=== PATIENT | female | born 1990 | race African-American/Black ===

== ENCOUNTER 2021-10-20 11:02 | Emergency (ER) | payer BC, SELFPAY ==
[2021-10-20 11:10] VITALS: BP 120/80; PULSE 65; RESP 12; TEMP 36.4; O2SAT 100
--- NOTE | 2021-10-20 11:21 | ED.URI ---
HPI - URI/Sore Throat General Chief Complaint: Upper Respiratory Infection Stated Complaint: sore throat Time Seen by Provider: 10/20/21 11:15 Source: patient Mode of arrival: ambulatory Limitations: no limitations History of Present Illness HPI Narrative: Ms. Baez is a 31-year-old female patient presenting to the clinic today with complaints of sore throat, congestion, and ear pressure x3 days. She reports no known fever or chills. She has possible exposure to COVID. MD elicited complaint: sore throat and nasal congestion Related Data Home Medications Medication Instructions Recorded Confirmed ergocalciferol (vitamin D2) 1,250 1,250 mcg PO WEEKLY 10/20/21 10/20/21 mcg (50,000 unit) capsule Allergies Allergy/AdvReac Type Severity Reaction Status Date / Time No Known Allergies Allergy Verified 10/20/21 11:09 Review of Systems Review of Systems: Pertinent positives per HPI. Patient denies any fever, chills, rash, headache, visual changes, dizziness, cough, shortness of breath, chest pain, palpitations, nausea, vomiting, diarrhea, constipation, abdominal pain, or any urinary issues. [facility] Comments At the time of my signature, I reviewed and agree with the nursing past medical, surgical, social, and family history. There is no relevant family history pertinent to the patient complaint. Exam Narrative: General: Well-developed, obese, in no apparent distress Head: Normocephalic, atraumatic Eyes: Pupils equally round and reactive to light bilaterally, EOM intact, sclera and conjunctive clear, no discharge, lids normal Ears: TMs intact and clear, ear canals clear, no drainage, grossly hearing normal. Nose: Nares patent, clear nasal discharge, moderate inflammation to anterior and posterior nares right greater than left, mild right ethmoid sinus tenderness. Mouth: Oral pharynx without lesions or masses, good dentition, MMM. Postnasal drip, oropharynx mildly red Neck: Supple, trachea midline, no enlargement of anterior or posterior cervical nodes, no thyroid masses or goiter palpable. Cardio: Regular rate and rhythm, s1 and s2 normal, no murmur appreciated. Resp: Clear to auscultation bilaterally, no rhonchi, rales, wheezing or rubs Course Course Emergency Course: Portions of this record may have been created with voice recognition software. Level of Care: Express Care Visit Vital Signs Vital signs: Vital signs reviewed MDM - URI/Sore Throat MDM Narrative Medical decision making narrative: At the time of visit patient is resting comfortably on the exam table. COVID and strep testing was performed and were negative in the clinic. I suspect the patient has an upper respiratory infection with postnasal drip. We will give a prescription for some prednisone to help with the pressure and the congestion. Supportive measures were discussed with the patient she voiced understanding of discharge instructions and agrees to treatment plan. Differential Diagnosis Differential diagnosis: Likely upper respiratory infection, otitis media, sinusitis, viral infection, bronchitis, influenza, pharyngitis and other (COVID) Discharge Plan Discharge Clinical Impression: PND (post-nasal drip) Upper respiratory infection Qualifiers: URI type: unspecified viral URI Qualified Code(s): J06.9 - Acute upper respiratory infection, unspecified Patient Disposition: Home, Self-Care Condition: Stable Instructions: Antibiotic Form, Cold Symptoms (ED), Postnasal Drip (DC) Additional Instructions: COVID and strep screen negative in the clinic. We will send strep for culture Take prescription medications only as prescribed-prednisone Increase fluids and stay well hydrated Tylenol/motrin for pain/fever Flonase and OTC antihistamines as directed Vicks vapor rub to open sinuses Sinus rinses for congestion Cepacol spray, cough drops, throat lozenges, warm tea with honey/lemon, gargle salt water to soothe throat
== END 2021-10-20 11:49 | disposition home or self-care (01) ==
PROVIDERS: Emergency Provider Nurse Practitioner Family
DX: R09.82 Postnasal drip (principal); J06.9 Acute upper respiratory infection, unspecified; Z20.822 Contact with and (suspected) exposure to COVID-19
CPT/HCPCS: 87081; 87426; 87880; 99213; C9803; G0463

== ENCOUNTER 2022-03-31 00:25 | Day surgery (SDC) | payer BC, OTHER, SELFPAY ==
[2022-03-18 14:36] VITALS: BMI 32.9
--- NOTE | 2022-03-18 14:40 | PC.NURSE ---
Report to the Outpatient Waiting Room, entrance under the green pavilion located off [facility], at time 1130 on date 03/31/22. Planned Procedure Time: 1330. Time changes happen often and if your time is changed the preop area will call you the afternoon before. - You and your visitor will be asked to self-screen and do not enter if you have any COVID symptoms. - Only one visitor is requested with a max of two and NO children visitors are allowed at this time. - The patient visitor may be requested to leave or wait in car when not with patient due to distancing restrictions. - A mask is REQUIRED within the hospital. Patients may have clear liquids (water, carbonated beverages, clear teas, apple juice) until 3 hours prior to surgery with a maximum of 20 ounces. - No food from midnight until time of surgery Take the following medications with a SIP of water the morning of surgery: NONE Medications to discontinue per physician: VITAMIN Date to take last dose: 03/27/22 Please no make-up, nail tuvaluan, hairspray, perfume, deodorant, or body powder the day of surgery. No jewelry (including any body piercings) or valuables the day of surgery, leave them at home. Please take a shower or bath the night before, or the morning of, surgery with an antibacterial soap. Wear comfortable, loose fitting clothing. - Jewelry must be removed prior to entering the operating room. Rings and piercings that are not removed may be cut off. - The hospital will not accept responsibility for valuables. - Please leave all valuables, including medications, at home the day of surgery. If you are going home after surgery, a licensed vibratory pile driver must drive you home. - NO public transportation without another adult if you receive anesthesia. - We recommend that an adult stay with you for 24 hours following discharge. - We also recommend that you do not drive, make important decision, drink alcoholic beverages, or take any drugs that were not prescribed by your health care provider for at least 24 hours after your discharge time. Follow any additional instructions given to you from your surgeon. If you or anyone in your household have experienced Covid symptoms in the past week, please notify your surgeon or the nurse liaison at the phone number below for possible testing. Telephone instructions given to PT - AMARI BRADLEY and asked if any additional questions and then verbalized understanding. Patient advised to call surgeon office or pre surgery nurse liaison [phone] if any additional questions.
--- NOTE | 2022-03-30 11:37 | PM.IMHP ---
H&P: HPI History of Present Illness Date/Time: 03/30/22 11:37 Chief Complaint: cervical dysplasia Narrative: Sherri is a 30yo P1011, who presents for scheduled surgery. Her pap smear this year and last year were NILM/HPV +. Colpo showed NATIVIDAD 2 at 6o'clock biopsy. Review of Systems Constitutional: Constitutional: Denies chills, Denies fever(s) and Denies headache(s) Eyes: Eyes: Denies change in vision ENT: Denies dizziness and Denies headache(s) Cardiovascular: Cardiovascular: Denies chest pain and Denies dyspnea Respiratory: Respiratory: Denies cough and Denies dyspnea Gastrointestinal: Gastrointestinal: Denies abdominal pain and Denies change in stool character Genitourinary: Genitourinary: Denies abnormal menses, Denies pelvic pain, Denies vaginal discharge, Denies vaginal odor and Denies vaginal pruritus Neurologic: Denies dizziness and Denies headache(s) Psychiatric: Psychiatric: Denies anxiety and Denies depression [facility] Past Medical History Medical History Abnormal Papanicolaou smear of cervix with positive human papilloma virus (HPV) test Encounter for IUD insertion 08/2018 Surgical History Surgical History H/O colposcopy with cervical biopsy 02/20/2022 Family History Family History Other Breast cancer Heart disease Social History Social History Smoking packs per day: 1 Smoking cigarettes per day: 20.0 Years smoked: 8 Smoking pack-years: 8.00 Smoking status: Former smoker Tobacco type: cigarettes Smoking end date: 03/23/14 Alcohol intake: current Alcohol use details: 1/MONTH Substance use: never Substance use type: does not use Living arrangements: with family Additional living arrangements comments: DAUGHTER Additional occupation/education comments: [employer] [place] Gender identity (if verbalized by the patient): Female Sexual Orientation (if Verbalized by the Patient): Straight or Heterosexual Spiritual care concerns: No Meds Home Medications and Allergies Home Medications Medication Instructions Recorded Confirmed Type ergocalciferol (vitamin D2) 1,250 1,250 mcg PO WEEKLY 10/20/21 03/18/22 History mcg (50,000 unit) capsule human papillomav vac,9-ivania(PF) 0.5 0.5 ml IM ONCE #0.5 mL 03/04/22 03/18/22 Rx mL intramuscular syringe (Gardasil 9 (PF)) Allergies Allergy/AdvReac Type Severity Reaction Status Date / Time No Known Allergies Allergy Verified 03/18/22 14:35 Exam Const: General: cooperative, healthy appearing, comfortable, no acute distress and obese Orientation/consciousness: patient oriented x3 Resp: Effort & Inspection: normal respiratory effort Cardio: Rate: regular rate GI: Inspection: normal to inspection GI Palp: No abdominal tenderness and Yes Soft to palpation : Other: deferred to OR Skin: General skin exam: normal color Neuro: General: patient oriented x3 Extrem: General: normal to inspection Psych: Appearance: grossly normal Affect: normal affect Attitude: cooperative Assessment and Plan Assessment and plan (1) NATIVIDAD II (cervical intraepithelial neoplasia II): Code(s): N87.1 - Moderate cervical dysplasia Status: Acute Plan - Proceed with LEEP, top hot, ECC - Risks and benefits explained in detail
--- NOTE | 2022-03-31 08:14 | WPDHPUPDATE1 ---
History and Physical Update Update Date/Time: 03/31/22 08:14 History and Physical has been reviewed, including an updated exam of the patient. There are NO changes in the patient's condition. Risks, benefits, and alternatives have been discussed and questions answered. Patient agrees to proceed with procedure.
--- NOTE | 2022-03-31 09:08 | P.PNAN_ITS ---
Anes - Initial Pre Proc Eval Procedure: Operation Date: 03/31/22 13:30 Proposed Procedures p Loop Electrical Excision Procedure - Shantell Craft MD Date/Time: 03/31/22 09:08 Surgeon: Shantell Craft MD Pre Op Diagnosis: cervical dysplasia Patient Data Age: 31 Gender: F Height: 1.63 m Weight: 87.1 kg Allergies Allergy/AdvReac Type Severity Reaction Status Date / Time No Known Allergies Allergy Verified 03/18/22 14:35 Home Medications Medication Instructions Recorded Confirmed Type ergocalciferol (vitamin D2) 1,250 1,250 mcg PO WEEKLY 10/20/21 03/18/22 History mcg (50,000 unit) capsule human papillomav vac,9-ivania(PF) 0.5 0.5 ml IM ONCE #0.5 mL 03/04/22 03/18/22 Rx mL intramuscular syringe (Gardasil 9 (PF)) Patient hx anesthesia problems: none Family hx anesthesia problems: none Results Review: All pre-operative results and documents have been reviewed as part of the pre- operative evaluation. [facility]LY [facility] Past Medical History Medical History Abnormal Papanicolaou smear of cervix with positive human papilloma virus (HPV) test Encounter for IUD insertion 08/2018 Surgical History Surgical History H/O colposcopy with cervical biopsy 02/20/2022 Family History Family History Other Breast cancer Heart disease Social History Social History Smoking packs per day: 1 Smoking cigarettes per day: 20.0 Years smoked: 8 Smoking pack-years: 8.00 Smoking status: Former smoker Tobacco type: cigarettes Smoking end date: 03/23/14 Alcohol intake: current Alcohol use details: 1/MONTH Substance use: never Substance use type: does not use Living arrangements: with family Additional living arrangements comments: DAUGHTER Additional occupation/education comments: [employer] [place] Gender identity (if verbalized by the patient): Female Sexual Orientation (if Verbalized by the Patient): Straight or Heterosexual Spiritual care concerns: No Anes - Eval Final PreProcedure Day of Procedure 03/31/22 09:08 Patient weight: obese Heart: regular rate and rhythm Lungs: clear to auscultation Airway: Mallampati scale class II Neurological: alert and oriented Last oral intake: >/= 8 hours ASA classification: II Emergent: no Anesthetic plan: proceed Anesthesia type and monitoring: general GIVS and standard monitoring Results Review: All pre-operative results and documents have been reviewed as part of the pre- operative evaluation. Informed Consent: The patient's anesthetic plan and its attendant risks and benefits were discussed with the patient/family/POA. Questions were solicited and answers provided to the satisfaction of the patient/family/POA.
[2022-03-31 09:42] VITALS: BP 120/65; PULSE 71; RESP 14; TEMP 36.3; O2SAT 100
[2022-03-31] MEDS: LACTATED RINGERS 1,000 ML 30 ML IV CONT (09:45)
[2022-03-31] MEDS: ACETAMINOPHEN 500 MG TABLET 1000 MG PO (09:45)
[2022-03-31] MEDS: BUPIVACAINE/EPINEPHRINE 0.5% 10 ML VIAL 30 ML INFILTRATE (10:03)
--- NOTE | 2022-03-31 10:28 | P.OP_ITS ---
Procedure Note - Detailed Date of Procedure 03/31/22 Pre-op Diagnosis cervical dysplasia Post-op Diagnosis Same Procedure Performed LEEP, top hat, ECC Surgeon Shantell Craft MD Anesthesia MAC Findings No uptake at 6 and 12 o'clock. IUD strings visualized, but cut during the LEEP procedure (unable to see strings at end of case). Good hemostasis at end of case. Description of Procedure Sherri was taken to the operating room where she was placed under MAC sedation without complications. She was then prepped and draped in the normal fashion in the dorsal lithotomy position with her legs in low Yohannes stirrups. A time-out was performed and no preoperative antibiotics were indicated. A coated speculum attached to suction was then placed within the vagina, where the cervix was easily identified. The cervix was then injected with 0.25% Marcaine with ep inephrine (10cc were used). Lugol?s solution was then applied to the cervix. No uptake was noted at 12 and 6 o'clock. The LEEP was then obtained in a single swipe from the patient?s left to right. The LEEP was removed and a silk stitch was placed at 12:00 p.m. to orient the tissue for pathology. A top-hat was then obtained in the same manner. A silk stitch was then placed at 12:00 p.m. An E CC was then collected. The LEEP bed was then cauterized using the roller ball. Monsel?s solution was then placed in the LEEP bed. Good hemostasis was noted. Sponge, lap, instrument, and needle counts were correct at the end of the procedure. The patient was awoken from anesthesia and taken to recovery in a stable condition with plans of same-day discharge home. Estimated Blood Loss 5 Pathology Yes (Leep and top hat (both with stitch at 12o'clock), ECC) Condition Stable Disposition Same day [facility] Billing Surgery - Charge Forward: Surgery Billing
[2022-03-31 10:32] VITALS: BP 110/66; PULSE 89; RESP 16; O2SAT 99
[2022-03-31 11:00] VITALS: BP 107/64; PULSE 86; RESP 16; O2SAT 100
[2022-03-31 11:30] VITALS: BP 111/69; PULSE 74; RESP 16; O2SAT 100
[2022-03-31 12:00] VITALS: BP 96/60; PULSE 68; RESP 16
== END 2022-03-31 12:27 | disposition home or self-care (01) ==
PROVIDERS: PCP Family Medicine; Visit Provider Obstetrics & Gynecology
PROC: 0UBC7ZZ Excision of Cervix, Via Natural or Artificial Opening (ICD-10-PCS; CPT 57522; principal; 2022-03-31 13:30)
DX: N87.1 Moderate cervical dysplasia (principal); Z87.891 Personal history of nicotine dependence; E66.9 Obesity, unspecified; Z68.33 Body mass index [BMI] 33.0-33.9, adult
CPT/HCPCS: 57522; 88305; 88307; 88342; A9270; J1100; J2250; J2405; J2704; J3010; J7120

== ENCOUNTER 2022-12-03 14:03 | Outpatient (CLI) | payer BC, OTHER, SELFPAY ==
[2022-12-03 15:00] LABS: Basophils Absolute Auto 0.1 K/mm3 (0.0-0.1); Basophils Percent Auto 0.8 % (0.2-1.2); Eosinophils Absolute Auto 0.2 K/mm3 (0-0.3); Eosinophils Percent Auto 2.3 % (0-4.4); Hematocrit 42.8 % (37.0-47.0); Immature Granulocyte Absolute 0.03 K/mm3 (0.00-0.031); Immature Granulocyte Percent A 0.4 % (0-0.5); Immature Platelet Fraction Pct 11.4 % (0.9-11.2); Lymphocytes Absolute Auto 3.03 K/mm3 (0.9-3.2); Mean Corpuscular HGB Conc 32.7 g/dl (32-36); Mean Corpuscular Hemoglobin 30.7 pg (26-34); Mean Corpuscular Volume 93.9 fl (80-100); Mean Platelet Volume 12.1 fl (7.4-10.4); Monocytes Absolute Auto 0.5 K/mm3 (0.1-0.6); Monocytes Percent Auto 6.5 % (2.6-8.5); Neutrophils Absolute Auto 3.6 K/mm3 (1.3-6.7); Platelet Count Result 146 k/mm3 (150-375); Red Blood Count 4.56 M/mm3 (4.2-5.4); Red Cell Distribution Width 12.5 % (11.5-14.5); White Blood Count 7.4 K/mm3 (4.5-10.0)
[2022-12-03 15:54] LABS: Iron 101 ug/dL (37-170)
[2022-12-03 16:03] LABS: Percent Iron Saturation 31 % (20-50)
[2022-12-03 16:25] LABS: Thyroid Stimulating Hormone Reflex 0.676 uIU/mL (0.465-4.68)
[2022-12-06 17:13] LABS: Testosterone Total 34 ng/dL (2-45)
[2022-12-09 14:43] LABS: Progesterone 20.7 ng/mL (***); Prolactin 7.8 ng/mL (***)
[2022-12-10 21:51] LABS: Estradiol, Ultrasensitive 199 pg/mL
== END 2022-12-03 14:04 | disposition home or self-care (01) ==
LOC: ANHLAB 14:05
PROVIDERS: PCP Family Medicine; Visit Provider Obstetrics & Gynecology
DX: N93.9 Abnormal uterine and vaginal bleeding, unspecified (principal)
CPT/HCPCS: 36415; 82670; 82728; 83001; 83540; 83550; 84144; 84146; 84403; 84443; 85025; 85055

== ENCOUNTER 2023-05-07 08:17 | Outpatient (CLI) | payer BC, OTHER, SELFPAY | END 2023-05-07 08:18 | disposition home or self-care (01) | PROVIDERS: PCP Family Medicine; Visit Provider Obstetrics & Gynecology | DX: Z01.818 Encounter for other preprocedural examination (principal); N93.9 Abnormal uterine and vaginal bleeding, unspecified | CPT/HCPCS: 36415; 86850; 86900; 86901 ==

== ENCOUNTER 2023-05-11 00:21 | Day surgery (SDC) | payer BC, SELFPAY ==
[2023-04-30 08:47] VITALS: BMI 34.2
--- NOTE | 2023-04-30 09:00 | SUR.PREOP ---
Report to the Outpatient Waiting Room, entrance under the green pavilion located off [facility], at time 0600 on date 05/11/23. Planned Procedure Time: 0730. Time changes happen often and if your time is changed the preop area will call you the afternoon before. - You and your visitor will be asked to self-screen and do not enter if you have any COVID symptoms. - A mask is optional within the hospital at this time. Patients may have clear liquids (water, carbonated beverages, clear teas, apple juice) until 3 hours prior to surgery with a maximum of 20 ounces. - No food from midnight until time of surgery 20 ounces before 0430am - Infants may have breast milk until 4 hours before surgery, infant formula 6 hours prior to surgery. - Children will be allowed to drink immediately following surgery. If applicable, please bring a bottle or sippy cup to assist with drinking. Juice, water, soda, and popsicles are readily available. For infants on formula, please bring formula the day of surgery. Pacifiers are allowed. Take the following medications with a SIP of water the morning of surgery: n/a DO NOT STOP ANY OF YOUR OTHER PRESCRIPTION MEDICATIONS PRIOR TO SURGERY ?EXCEPT THE FOLLOWING Medications to discontinue per physician n/a Date to take last dose Please no make-up, nail american, hairspray, perfume, deodorant, or body powder the day of surgery. No jewelry (including any body piercings) or valuables the day of surgery, leave them at home. Please take a shower or bath the night before, or the morning of, surgery with an antibacterial soap. Wear comfortable, loose fitting clothing. Children are encouraged to wear pajamas. - Jewelry must be removed prior to entering the operating room. Rings and piercings that are not removed may be cut off. - The hospital will not accept responsibility for valuables. - Please leave all valuables, including medications, at home the day of surgery. If you are going home after surgery, a licensed otr flatbed company truck driver must drive you home. - NO public transportation without another adult if you receive anesthesia. - We recommend that an adult stay with you for 24 hours following discharge. - We also recommend that you do not drive, make important decision, drink alcoholic beverages, or take any drugs that were not prescribed by your health care provider for at least 24 hours after your discharge time. For Pediatric surgeries, we recommend two adults accompany the child home. Follow any additional instructions given to you from your surgeon. If you or anyone in your household have experienced Covid symptoms in the past week, please notify your surgeon or the nurse liaison at the phone number below for possible testing. Telephone instructions given to __patient__and asked if any additional questions and then verbalized understanding. Patient advised to call surgeon office or pre surgery nurse liaison [phone] if any additional questions.
--- NOTE | 2023-05-08 08:57 | PM.IMHP ---
H&P: HPI History of Present Illness Date/Time: 05/08/23 08:57 Chief Complaint: AUB Narrative: Sherri is a 32yo P1011, who presents for surgical management of AUB. She has a normal pap 11/2022. She had a LEEP 03/2022 due to NATIVIDAD 2 on colpo, leep was negative for dysplasia. 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 She has a Mirena IUD in place since 08/2018. She is having cycles every other week now; sometimes just spotting, other times needing to use large tampon. She is frustrated why she continues to have heavy/painful cycles even with the IUD; wondering what her options are. Blood work showed normal blood counts/iron, normal thyroid, no PCOS. 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 She is sexually active, BF has a vasectomy. Review of Systems Constitutional: Constitutional: Denies chills, Denies fever(s) and Denies headache(s) Eyes: Eyes: Denies change in vision ENT: Denies dizziness and Denies headache(s) Cardiovascular: Cardiovascular: Denies chest pain and Denies dyspnea Respiratory: Respiratory: Denies cough and Denies dyspnea Gastrointestinal: Gastrointestinal: Denies abdominal pain and Denies change in stool character Genitourinary: Genitourinary: Reports abnormal menses, Reports menorrhagia, Reports pelvic pain, Denies vaginal discharge, Denies vaginal odor and Denies vaginal pruritus Neurologic: Denies dizziness and Denies headache(s) Psychiatric: Psychiatric: Denies anxiety and Denies depression [facility] Past Medical History Medical History Abnormal Papanicolaou smear of cervix with positive human papilloma virus (HPV) test Encounter for IUD insertion 08/2018- PARGARD INSERTION Vaginal discharge Surgical History Surgical History H/O colposcopy with cervical biopsy 02/20/2022 shows NATIVIDAD 2; needs LEEP H/O LEEP 03/31/2022 - benign Family History Family History Mother Breast cancer Other Diabetes mellitus Heart disease Social History Social History Smoking packs per day: 1 Smoking cigarettes per day: 20.0 Years smoked: 8 Smoking pack-years: 8.00 Smoking status: Never smoker Tobacco type: cigarettes Smoking end date: 03/23/14 Alcohol intake: current Alcohol use details: 1/MONTH Substance use: never Substance use type: does not use Lack of Transportation: No Lack of Food: Never True Current Housing: I Have Housing Concerned About Future Housing: No Difficulty Paying Gas/Electric Bills: No Difficulty Paying for Meds: No Currently Unemployed: No Education: Associate Degree Difficulty w/ Childcare or Family Care: No Living arrangements: with family Additional living arrangements comments: DAUGHTER Occupation/Education: occupation Additional occupation/education comments: [employer] [place] Gender identity (if verbalized by the patient): Female Sexual Orientation (if Verbalized by the Patient): Straight or Heterosexual Spiritual care concerns: No Meds Home Medications and Allergies Home Medications Medication Instructions Recorded Confirmed Type No Home Medications 04/30/23 04/30/23 History Allergies Allergy/AdvReac Type Severity Reaction Status Date / Time No Known Allergies Allergy Verified 03/26/23 08:32 Exam Const: General: cooperative, healthy appearing, comfortable and no acute distress Orientation/consciousness: patient oriented x3 Resp: Effort & Inspection: normal respiratory effort Cardio: Rate: regular rate GI: Inspection: normal to inspection GI Palp: No abdominal tenderness and Yes Soft to palpation : Other: deferred to OR Skin: General skin exam: normal color Neuro: General: patient oriented x3 Extrem: General: normal to inspection Psych: Appearance: grossly
[2023-05-11] VITALS (11 sets, daily range): BP systolic 102–122; BP diastolic 56–77; PULSE 62–86; RESP 14–22; TEMP 36.2–37.1; O2SAT 95–100
[2023-05-11] MEDS: LACTATED RINGERS 1,000 ML 30 ML IV CONT ×2 (06:55→09:15)
[2023-05-11] MEDS: KETOROLAC 15 MG/ML VIAL (*BKC) IV PUSH (06:55)
[2023-05-11] MEDS: ACETAMINOPHEN 500 MG TABLET 1000 MG PO ×2 (06:55→17:13)
--- NOTE | 2023-05-11 07:08 | WPDHPUPDATE1 ---
History and Physical Update Update Date/Time: 05/11/23 07:08 History and Physical has been reviewed, including an updated exam of the patient. There are NO changes in the patient's condition. Risks, benefits, and alternatives have been discussed and questions answered. Patient agrees to proceed with robotic assisted total laparoscopic hysterectomy with bilateral salpingectomy and cystoscopy.
--- NOTE | 2023-05-11 07:13 | P.PNAN_ITS ---
Anes - Initial Pre Proc Eval Procedure: Operation Date: 05/11/23 07:30 Proposed Procedures p Robotic Assisted Total Laparoscopic Hysterectomy with Bilateral Salpingectomy - Shantell Craft MD Date/Time: 05/11/23 07:13 Surgeon: Shantell Craft MD Pre Op Diagnosis: abnormal uterine bleeding Patient Data Age: 32 Gender: F Height: 1.6 m Weight: 87.54 kg Allergies Allergy/AdvReac Type Severity Reaction Status Date / Time No Known Allergies Allergy Verified 03/26/23 08:32 Home Medications Medication Instructions Recorded Confirmed Type No Home Medications 04/30/23 04/30/23 History Patient hx anesthesia problems: none Family hx anesthesia problems: none Results Review: All pre-operative results and documents have been reviewed as part of the pre- operative evaluation. [facility] Past Medical History Medical History Abnormal Papanicolaou smear of cervix with positive human papilloma virus (HPV) test Encounter for IUD insertion 08/2018- PARGARD INSERTION Vaginal discharge Surgical History Surgical History H/O colposcopy with cervical biopsy 02/20/2022 shows NATIVIDAD 2; needs LEEP H/O LEEP 03/31/2022 - benign Family History Family History Mother Breast cancer Other Diabetes mellitus Heart disease Social History Social History Smoking packs per day: 1 Smoking cigarettes per day: 20.0 Years smoked: 8 Smoking pack-years: 8.00 Smoking status: Never smoker Tobacco type: cigarettes Smoking end date: 03/23/14 Alcohol intake: current Alcohol use details: 1/MONTH Substance use: never Substance use type: does not use Lack of Transportation: No Lack of Food: Never True Current Housing: I Have Housing Concerned About Future Housing: No Difficulty Paying Gas/Electric Bills: No Difficulty Paying for Meds: No Currently Unemployed: No Education: Associate Degree Difficulty w/ Childcare or Family Care: No Living arrangements: with family Additional living arrangements comments: DAUGHTER Occupation/Education: occupation Additional occupation/education comments: [employer] [place] Gender identity (if verbalized by the patient): Female Sexual Orientation (if Verbalized by the Patient): Straight or Heterosexual Spiritual care concerns: No Anes - Eval Final PreProcedure Day of Procedure 05/11/23 07:13 Patient weight: obese Heart: regular rate and rhythm Lungs: clear to auscultation Airway: Mallampati scale class II Neurological: alert and oriented Last oral intake: >/= 8 hours ASA classification: II Emergent: no Anesthetic plan: proceed Anesthesia type and monitoring: general ETT and standard monitoring Results Review: All pre-operative results and documents have been reviewed as part of the pre- operative evaluation. Informed Consent: The patient's anesthetic plan and its attendant risks and benefits were discussed with the patient/family/POA. Questions were solicited and answers provided to the satisfaction of the patient/family/POA.
[2023-05-11] MEDS: ceFAZolin 2 GM/D5W 50 ML 2 GM/50 ML BAG IVPB (07:29)
[2023-05-11] MEDS: metroNIDAZOLE 500 MG/ISO 100ML 500 MG/100 ML BAG 100 MG IVPB (07:49)
[2023-05-11] MEDS: LIDO 1%/EPINEPHRINE 1:100,000 50 ML VIAL 30 ML INFILTRATE (08:04)
--- NOTE | 2023-05-11 09:07 | W.PM.PROC2 ---
Procedure Note - Detailed Date of Procedure 05/11/23 Pre-op Diagnosis abnormal uterine bleeding fibroid uteres Post-op Diagnosis Same Procedure Performed Robotic assisted laparoscopic hysterectomy with bilateral salpingectomy and cystoscopy Surgeon Shantell Craft MD Technology Teacher Kelli Anesthesia General and Local (1% lido w/ epi: 16cc) Findings Cervix 3cm; stenotic os, no IUD strings visualized. Uterus sounded to 11cm. Fibroid uterus; 3cm fibroid noted anteriorly. Normal bilateral fallopian tubes. Left ovary with small 1cm hemorrhagic cyst. Normal right ovary. Bladder without defects or masses; bilateral ureteral efflux noted. Good hemostasis at end of case; hemoderm powder used on raw edges at the end of the case. Uterus, cervix, bilateral tubes: 219.8g. Description of Procedure Sherri was taken to the operating room where she was placed under general anesthesia without issues. She received 2 g Ancef and 500mg Metronidazole. She was then prepped and draped in the usual sterile fashion in the dorsal lithotomy position with her legs in low Yohannes stirrups and her arms tucked at her side. A time-out was performed. My attention was turned down below where a light catheter was placed. A bivalve speculum was placed within the vagina. The cervix was easily identified and the anterior lip of the cervix was grasped with single-tooth tenaculum. The uterus was then sounded to 11cm. The cervix was serially dilated to allow for the MARIAN uterine manipulator; which was placed w/o issue (10cm tip with 3cm cervical ring). My gloves were changed and attention was then turned to the abdomen. A supraumbilical incision was made, and a 5 mm trocar was placed under direct visualization. Once intra-abdominal placement was confirmed, the abdomen was insufflated with carbon dioxide gas. An abdominal survey was performed and the above findings were noted. Two additional ports were placed on the right side and one port on the left side under direct visualization without issues. The umbilical port was switched out for a robotic port under direct visualization. The patient was then placed in deep Trendelenburg, with the legs slightly lowered. The robot was then docked. The instruments were placed intra-abdominally under direct visualization. I then un-scrubbed and went to the robotic console. I then started my hysterectomy on the right side. The ureter was easily identified transperitoneally and well out of the surgical field. The fallopian tube was elevated and the mesosalpinx was coagulated and transected. The round ligament was clamped, coagulated, and transected. The uterine ovarian artery was then serially clamped, coagulated, and transected with good hemostasis. The broad ligament was then dissected anteriorly and posteriorly skeletonizing the uterine artery. The bladder flap was then developed on the right side and carried around the left, anteriorly. The uterine artery was then serially clamped and coagulated. Once the vessel was adequately coagulated, it was then transected with good hemostasis. The same procedure was then performed on the left side without complications. The uterus was noted to be devascularized. The bladder flap was verified out of the surgical field and the colpotomy was started anteriorly and continued in a clockwise fashion until the uterus was released. The uterus was removed from the abdomen via the vagina without complications. The vaginal cuff had small bleeders that were made hemostatic without complications. The vaginal cuff was then reapproximated using a 0 V lock suture. The pelvis was then irrigated and suctioned free of all clots and debris. Hemoderm powder was placed on all the raw edges. Good hemostasis was noted. All instruments were removed from the abdomen and the robot was undocked. I then scrubbed back in and verified that the cuff was intact without any defects. The Light catheter was then removed. The cystoscope was placed within th
[2023-05-11] MEDS: DEXTROSE 5%/LACTATED RINGERS 1,000 ML 125 ML IV CONT (11:02)
[2023-05-11] MEDS: HYDROmorphone HCL INJ (*CRX) 1 MG/ML SYR 0.5 MG IV PUSH (11:03)
[2023-05-11] MEDS: KETOROLAC 30 MG/ML VIAL (*BKC) IV PUSH ×2 (13:12→19:13)
[2023-05-11] MEDS: oxyCODONE HCL (*CRX) 5 MG TAB IR PO (15:52)
[2023-05-11] MEDS: SIMETHICONE 80 MG TAB.CHEW PO (17:12)
[2023-05-11] MEDS: DOCUSATE SODIUM 100 MG CAPSULE PO (17:13)
[2023-05-11] MEDS: ONDANSETRON INJ 4 MG/2 ML VIAL IV PUSH (19:13)
[2023-05-12] MEDS: ACETAMINOPHEN 500 MG TABLET 1000 MG PO ×2 (00:15→09:58)
[2023-05-12] MEDS: IBUPROFEN 600 MG TABLET PO ×2 (00:15→09:59)
[2023-05-12 04:30] VITALS: BP 124/79; PULSE 91; RESP 18; TEMP 36.7; O2SAT 99
[2023-05-12] MEDS: oxyCODONE HCL (*CRX) 5 MG TAB IR PO (04:30)
--- NOTE | 2023-05-12 07:11 | PM.GYNPNOP ---
SEPARATOR TENDER - A/P Assessment and plan (1) S/P laparoscopic hysterectomy: Code(s): Z90.710 - Acquired absence of both cervix and uterus Status: Acute Postoperative Procedures: Procedures Operation Date: 05/11/23 07:30 Actual Procedure Side Surgeon p Robotic Assisted Total Laparoscopic Hysterectomy with Bilateral Salpingectomy Bilateral Shantell Craft MD Postoperative day: 1 Postoperative status: doing well Postoperative plan: routine post-op care, advance diet (and verify she can tolerate PO pain meds), discharge and other (pending labs) Time Spent With Patient Time: Total time spent is greater than 50% in coordination of care (as documented) at patient's floor/unit and/or counseling patient: Time with patient: less than 15 minutes SEPARATOR TENDER- PN:Subj Post-Op Subjective Date/time seen: 05/12/23 07:11 Interval history: POD#1 Sherri reports doing well today. No issues overnight. Her pain is controlled with PO meds. She has only tolerated a couple bites of regular diet, vomited after the first two doses of pain meds (on empty stomach, kept the third dose down after a few bites of sandwich). She denies any vaginal bleeding. She has voided. She has not passed flatus yet either. She has ambulated and denies any symptoms of anemia. Labs also pending (lab had to collect them). Review of Systems Review of Systems: All systems reviewed & are unremarkable except as noted in HPI and below (HPI) Constitutional: Constitutional: Denies chills, Denies fever(s) and Denies headache(s) Eyes: Eyes: Denies change in vision ENT: Denies dizziness and Denies headache(s) Cardiovascular: Cardiovascular: Denies chest pain and Denies rapid heart rate Respiratory: Respiratory: Denies cough Genitourinary: Genitourinary: Denies abnormal vaginal bleeding Neurologic: Denies dizziness and Denies headache(s) Exam Const: General: cooperative, comfortable, no acute distress and obese Orientation/consciousness: patient oriented x3 Resp: Effort & Inspection: normal respiratory effort Auscultation: clear to auscultation bilaterally Cardio: Rate: regular rate GI: Inspection: normal to inspection and incision (4 LSC incisions ) GI Palp: Yes abdominal tenderness (appropriate) and Yes Soft to palpation Auscultation: normal bowel sounds : Other: normal bleeding on pad Skin: General skin exam: normal color Neuro: General: patient oriented x3 Psych: Appearance: grossly normal Affect: normal affect Attitude: cooperative SEPARATOR TENDER - PN: Obj Data Vital Signs Vital Signs: Vital Signs - 24 hr 05/11/23 09:15 05/11/23 09:30 05/11/23 09:45 Temperature 97.1 F L Pulse Rate 78 75 70 Respiratory Rate 20 18 Blood Pressure 102/56 L 117/68 114/75 Pulse Oximetry 97 100 100 Oxygen Delivery Simple Face Mask Simple Face Mask Simple Face Mask Oxygen Flow Rate 8 10 10 05/11/23 09:50 05/11/23 10:00 05/11/23 10:05 Temperature Pulse Rate 86 85 Respiratory Rate 22 H 19 Blood Pressure 104/67 121/68 Pulse Oximetry 98 98 96 Oxygen Delivery Room Air Room Air Room Air Oxygen Flow Rate 05/11/23 10:15 05/11/23 10:30 05/11/23 10:40 Temperature 97.3 F L Pulse Rate 82 82 80 Respiratory Rate 17 19 18 Blood Pressure 118/71 121/77 122/66 Pulse Oximetry 95 97 100 Oxygen Delivery Room Air Room Air Oxygen Flow Rate 05/11/23 10:45 05/11/23 19:10 05/11/23 19:10 Temperature 98.8 F Pulse Rate 62 Respiratory Rate 18 Blood Pressure 122/76 Pulse Oximetry 100 Oxygen Delivery Room Air Room Air Oxygen Flow Rate 05/12/23 04:30 05/12/23 04:30 Temperature 98.1 F Pulse Rate 91 Respiratory Rate 18 Blood Pressure 124/79 Pulse Oximetry 99 Oxygen Delivery Room Air Oxygen Flow Rate Intake/Output Intake/Output: Intake & Output 05/09/23 05/10/23 05/11/23 05/12/23 23:59 23:59 23:59 23:59 Intake Total 2550 Output Total 550 Balance 1999 Meds/Results Medications: Active Medicat
[2023-05-12 07:35] LABS: Basophils Percent Auto 0.3 % (0.2-1.2); Hematocrit 37.7 % (37.0-47.0); Hemoglobin 12.4 g/dL (12.0-15.0); Immature Granulocyte Absolute 0.06 K/mm3 (0.00-0.031); Immature Granulocyte Percent A 0.4 % (0-0.5); Lymphocytes Absolute Auto 2.54 K/mm3 (0.9-3.2); Lymphocytes Percent Auto 16.3 % (18.3-44.2); Mean Corpuscular HGB Conc 32.9 g/dl (32-36); Mean Corpuscular Hemoglobin 30.8 pg (26-34); Mean Corpuscular Volume 93.5 fl (80-100); Mean Platelet Volume 10.9 fl (7.4-10.4); Monocytes Percent Auto 6.4 % (2.6-8.5); Neutrophils Absolute Auto 11.9 K/mm3 (1.3-6.7); Neutrophils Percent Auto 76.6 % (45.5-73.1); Platelet Count Result 195 k/mm3 (150-375); Red Blood Count 4.03 M/mm3 (4.2-5.4); Red Cell Distribution Width 12.8 % (11.5-14.5); White Blood Count 15.6 K/mm3 (4.5-10.0)
[2023-05-12 07:44] LABS: Anion Gap 2 mmol/L (8-16); Blood Urea Nitrogen 8 mg/dL (7-17); Calcium 9.2 mg/dL (8.4-10.2); Carbon Dioxide 27 mmol/L (22-30); Chloride 106 mmol/L (98-107); Estimated CRCL calculation 118 ml/min; Estimated Glomerular Filt Rate > 60; Glucose 95 mg/dL (65-110); Potassium 3.7 mmol/L (3.4-5.0); Sodium 135 mmol/L (137-145)
[2023-05-12 08:00] VITALS: BP 120/56; PULSE 56; RESP 16; TEMP 36.8; O2SAT 100
[2023-05-12] MEDS: SIMETHICONE 80 MG TAB.CHEW PO (09:58)
[2023-05-12] MEDS: DOCUSATE SODIUM 100 MG CAPSULE PO (09:59)
--- NOTE | 2023-05-12 10:26 | WPDANESPN ---
Anes - Prog Note Post-Op Date/Time: 05/12/23 10:26 Cardiovascular status: normal Respiratory status: normal Airway patency: baseline Mental status: baseline Post-Op hydration status: normal Vital Signs: Last Vital Signs Temp 36.8 C 05/12/23 08:00 Pulse 56 L 05/12/23 08:00 Resp 16 05/12/23 08:00 BP 120/56 L 05/12/23 08:00 Pulse Ox 100 05/12/23 08:00 O2 Del Method Room Air 05/12/23 04:30 O2 Flow Rate 10 05/11/23 09:45 Pain Score (VAS): 05/30 I/O: Intake & Output 05/11/23 05/12/23 05/12/23 23:59 07:59 15:59 Intake Total 300 Output Total 400 Balance -100 Laboratory Tests 05/12/23 07:28 05/12/23 07:28 05/12/23 07:28 WBC 15.6 H RBC 4.03 L Hgb 12.4 Hct 37.7 MCV 93.5 MCH 30.8 MCHC 32.9 RDW 12.8 Plt Count 195 MPV 10.9 H Immature Gran % (Auto) 0.4 Neut % (Auto) 76.6 H Lymph % (Auto) 16.3 L [place] % (Auto) 6.4 Eos % (Auto) 0.0 Baso % (Auto) 0.3 Lymph # (Auto) 2.54 [place] # (Auto) 1.0 H Eos # (Auto) 0.0 Baso # (Auto) 0.0 Abs Immat Gran (auto) 0.06 H Absolute Neuts (auto) 11.9 H Absolute Nucleated RBC 0.0 Nucleated RBC % 0.0 Sodium 135 L Potassium 3.7 Chloride 106 Carbon Dioxide 27 Anion Gap 2 L BUN 8 Creatinine 0.60 L Estim Creat Clear Calc 118 Estimated GFR > 60 Glucose 95 Calcium 9.2 Post-procedural complaints: none Patient Feedback: Patient satisfied with anesthetic care.
== END 2023-05-12 10:42 | disposition home or self-care (01) ==
LOC: ANHSURGERY 06:08 → ANHOB2 10:37
PROVIDERS: PCP Family Medicine; Visit Provider Obstetrics & Gynecology
PROC: (CPT 58571; principal; 2023-05-11 07:30)
DX: D25.0 Submucous leiomyoma of uterus (principal); D25.1 Intramural leiomyoma of uterus; N93.9 Abnormal uterine and vaginal bleeding, unspecified; N87.9 Dysplasia of cervix uteri, unspecified; N88.8 Other specified noninflammatory disorders of cervix uteri; N83.8 Other noninflammatory disorders of ovary, fallopian tube and broad ligament; Z87.891 Personal history of nicotine dependence; E66.9 Obesity, unspecified; Z68.34 Body mass index [BMI] 34.0-34.9, adult
CPT/HCPCS: 58571; S2900; 36415; 80048; 85025; 88307; 99199; A9270; J0690; J1100; J1170; J1836; J1885; J2250; J2405; J2704; J3010; J7030; J7120; J7121

== ENCOUNTER 2023-05-19 14:11 | Emergency (ER) | payer BC, SELFPAY ==
--- NOTE | 2023-05-19 14:19 | ED.FEVER ---
HPI - Fever General Chief Complaint: Fever Stated Complaint: Fever Time Seen by Provider: 05/19/23 14:18 Source: patient Mode of arrival: ambulatory Limitations: no limitations History of Present Illness HPI Narrative: Jasbir is a 32-year-old female patient presenting to clinic today with complaints of a headache and possible fever. She reports she had a total hysterectomy on Thursday. She reports to her OBGYN that she had fever this morning of 99. They told her to come in and be evaluated. Also reporting a headache. OBGYN wants her tested for COVID and flu. Related Data Allergies Allergy/AdvReac Type Severity Reaction Status Date / Time No Known Allergies Allergy Verified 05/19/23 14:18 Review of Systems Review of Systems: Pertinent positives per HPI. Patient denies any fever, chills, rash, headache, visual changes, dizziness, cough, shortness of breath, chest pain, palpitations, nausea, vomiting, diarrhea, constipation, abdominal pain, or any urinary issues. [facility] Past Medical History Medical History Abnormal Papanicolaou smear of cervix with positive human papilloma virus (HPV) test Encounter for IUD insertion 08/2018- PARGARD INSERTION Vaginal discharge Surgical History Surgical History H/O colposcopy with cervical biopsy 02/20/2022 shows NATIVIDAD 2; needs LEEP H/O LEEP 03/31/2022 - benign S/P laparoscopic hysterectomy Robotic assisted laparoscopic hysterectomy with bilateral salpingectomy and cystoscopy Family History Family History Mother Breast cancer Other Diabetes mellitus Heart disease Social History Social History Smoking packs per day: 1 Smoking cigarettes per day: 20.0 Years smoked: 8 Smoking pack-years: 8.00 Smoking status: Never smoker Tobacco type: cigarettes Smoking end date: 03/23/14 Alcohol intake: current Alcohol use details: 1/MONTH Substance use: never Substance use type: does not use Lack of Transportation: No Lack of Food: Never True Current Housing: I Have Housing Concerned About Future Housing: No Difficulty Paying Gas/Electric Bills: No Difficulty Paying for Meds: No Currently Unemployed: No Education: Associate Degree Difficulty w/ Childcare or Family Care: No Living arrangements: with family Additional living arrangements comments: DAUGHTER Occupation/Education: occupation Additional occupation/education comments: [employer] [place] Gender identity (if verbalized by the patient): Female Sexual Orientation (if Verbalized by the Patient): Straight or Heterosexual Spiritual care concerns: No Comments At the time of my signature, I reviewed and agree with the nursing past medical, surgical, social, and family history. There is no relevant family history pertinent to the patient complaint. Exam Narrative: General: Well-developed, well nourished, in no apparent distress Head: Normocephalic, atraumatic Eyes: Pupils equally round and reactive to light bilaterally, EOM intact, sclera and conjunctive clear, no discharge, lids normal Ears: TMs intact and clear, ear canals clear, no drainage, grossly hearing normal. Nose: Nares patent, no discharge, no inflammation, no sinus tenderness. Mouth: Oral pharynx without lesions or masses, good dentition, MMM. Neck: Supple, trachea midline, no enlargement of anterior or posterior cervical nodes, no thyroid masses or goiter palpable. Cardio: Regular rate and rhythm, s1 and s2 normal, no murmur appreciated. Resp: Clear to auscultation bilaterally, no rhonchi, rales, wheezing or rubs Integumentary: [place], warm, and dry, intact without lesion, no rashes. No redness, erythema, or swelling around surgical wounds to abdomen Course Course Emergency Course: Porti
[2023-05-19 14:30] VITALS: BP 132/90; PULSE 74; RESP 16; TEMP 36.3; O2SAT 99
== END 2023-05-19 15:00 | disposition home or self-care (01) ==
PROVIDERS: Emergency Provider Nurse Practitioner Family; PCP Family Medicine
DX: R51.9 Headache, unspecified (principal); Z20.822 Contact with and (suspected) exposure to COVID-19; Z87.891 Personal history of nicotine dependence
CPT/HCPCS: 87426; 87804; 99213; G0463

== ENCOUNTER 2024-03-07 08:21 | Emergency (ER) | payer BC, SELFPAY ==
--- NOTE | 2024-03-07 08:23 | ED.URI ---
HPI - URI/Sore Throat General Chief Complaint: Upper Respiratory Infection Stated Complaint: Sore Throat Time Seen by Provider: 03/07/24 08:23 Source: patient Mode of arrival: ambulatory Limitations: no limitations History of Present Illness HPI Narrative: Patient is a 33-year-old female who presents with 3 days of sore throat, congestion, cough. 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 Denies any fever, chills, nausea, vomiting, diarrhea. Related Data Allergies Allergy/AdvReac Type Severity Reaction Status Date / Time No Known Allergies Allergy Verified 03/07/24 08:37 Review of Systems Review of Systems: All systems reviewed & are unremarkable except as noted in HPI and below Constitutional: Constitutional: Denies body ache(s), Denies chills, Denies fatigue, Denies fever(s), Denies headache(s), Denies malaise and Denies weakness Eyes: Eyes: Denies blurry vision, Denies itchy eyes and Denies loss of vision ENT: Denies otalgia, Denies headache(s), Reports nasal congestion, Denies sinus pain and Reports sore throat Cardiovascular: Cardiovascular: Denies chest pain, Denies irregular heart rhythm and Denies dyspnea Respiratory: Respiratory: Reports cough and Denies dyspnea Gastrointestinal: Gastrointestinal: Denies abdominal pain, Denies diarrhea, Denies nausea and Denies vomiting Musculoskeletal: Musculoskeletal: Denies back pain, Denies myalgias and Denies arthralgias Integumentary/Breasts: Skin/Breast: Denies pruritus and Denies rash Neurologic: Denies headache(s), Denies loss of vision and Denies weakness Psychiatric: Psychiatric: Reports no additional psychiatric complaints Endocrine: Endocrine: Denies fatigue Allergic/Immunologic: Allergic/Immunologic: Denies itchy eyes PMFSH Past Medical History Medical History Vaginal discharge Abnormal Papanicolaou smear of cervix with positive human papilloma virus (HPV) test Encounter for IUD insertion 08/2018- PARGARD INSERTION Surgical History Surgical History S/P laparoscopic hysterectomy Robotic assisted laparoscopic hysterectomy with bilateral salpingectomy and cystoscopy H/O LEEP 03/31/2022 - benign H/O colposcopy with cervical biopsy 02/20/2022 shows NATIVIDAD 2; needs LEEP Family History Family History Mother Breast cancer Other Diabetes mellitus Heart disease Social History Social History Smoking packs per day: 1 Smoking cigarettes per day: 20.0 Years smoked: 8 Smoking pack-years: 8.00 Smoking status: Never smoker Tobacco type: cigarettes Smoking end date: 03/23/14 Alcohol intake: current Alcohol use details: 1/MONTH Substance use: never Substance use type: does not use Lack of Transportation: No Lack of Food: Never True Current Housing: I Have Housing Concerned About Future Housing: No Difficulty Paying Gas/Electric Bills: No Difficulty Paying for Meds: No Currently Unemployed: No Education: Associate Degree Difficulty w/ Childcare or Family Care: No Living arrangements: with family Additional living arrangements comments: DAUGHTER Occupation/Education: occupation Additional occupation/education comments: [employer] [place] Gender identity (if verbalized by the patient): Female Sexual Orientation (if Verbalized by the Patient): Straight or Heterosexual Spiritual care concerns: No Comments At time of signature, agree with nursing past medical, surgical, social and family history. There is no relevant family history pertinent to the presenting complaint. Exam Const: General: cooperative, healthy appearing, comfortable, no acute distress and well nourished Nutritional Appearance: well nourished Orientation/consciousness: patient oriented x3 Limitations: no limitations HENMT: Head: normal to inspection, normocephalic and atraumatic Ears: hearing grossly normal bilaterally, external ears normal, TM's normal bilaterally, EAC's normal and no periauricular adenopathy Face/Nose/Sinus: Normal external nose present, Abnormal mucous membranes and turbinates present erythematous bilateral and diffuse, normal facial exam, sinuses nontender and face symmetric Face and sinus: normal facial exam, sinuses nontender and face symmetric Mouth: Yes Normal oral and palatal mucosa present, Yes lip normal, Yes tongue normal, Yes Normal salivary glands and ducts present, Yes oropharynx normal and Yes moist mucous membranes Teeth and gingiva: dentition normal Throat: posterior oropharynx normal, tonsils normal and uvula midline Eyes: General: appearance normal, both eyes and all related structures Alignment and Position: alignment normal and position normal Periorbital: periorbital findings normal Eyelids: eyelids normal Pupils: Equal, round and reactive pupils present Neck: Neck: normal visual inspection, full ROM, no lymphadenopathy and supple Chest: Chest palpation & inspection: normal inspection of the chest and normal palpation of entire chest wall Resp: Effort & Inspection: normal respiratory effort and able to speak in complete sentences Auscultation: clear to auscultation bilaterally, no crackles, no rales, no rhonchi and no wheezes Cardio: Rate: regular rate Rhythm: regular rhythm Heart sounds: S1 normal heart sound present and S2 normal heart sound present GI: Inspection: normal to inspection Skin: General skin exam: normal color and no rashes or lesions noted Neuro: General: patient oriented x3 and moves all extremities Cranial nerves: Yes Equal, round and reactive pupils present Speech: normal speech Gait exam (Neuro): Normal gait present Extrem: General: normal to inspection, full ROM and no edema Psych: Appearance: grossly normal and well kempt Mental Status: mental status grossly normal Speech and movement: Normal speech and movement present Affect: normal affect Attitude: cooperative Thought process: Normal thought process present Course Course Emergency Course: Patient is aware of diagnosis, understands and agrees to treatment plan. Anticipatory guidance given. Patient agrees to follow-up as directed and is aware of reasons to seek care at the emergency department. Portions of this record may have been created with voice recognition software Level of Care: Express Care Visit Vital Signs Vital signs: Vital Signs Temperature 37.0 C 03/07/24 08:35 Pulse Rate 83 03/07/24 08:35 Respiratory Rate 20 03/07/24 08:35 Blood Pressure 119/75 03/07/24 08:35 Pulse Oximetry 100 03/07/24 08:35 Oxygen Delivery Room Air 03/07/24 08:35 Temperature 37.0 C 03/07/24 08:35 Pulse Rate 83 03/07/24 08:35 Respiratory Rate 20 03/07/24 08:35 Blood Pressure 119/75 03/07/24 08:35 Pulse Oximetry 100 03/07/24 08:35 Oxygen Delivery Room Air 03/07/24 08:35 Reviewed MDM - URI/Sore Throat MDM Narrative Medical decision making narrative: Discharge instructions reviewed with patient, as well as provided in writing per nursing staff. The instructions also include specific and strict return/GO TO THE ER as well as f/u information. All questions have been answered, and the patient deny any further questions with discharge and discharge plan. Differential diagnosis considered: Connelly virus, strep pharyngitis, allergic rhinitis, upper respiratory tract infection, sinusitis, rhinosinusitis, nasopharyngitis. viral pharyngitis, otitis media, otitis externa, otitis effusion, foreign body, cerumen impaction, viral syndrome, and influenza.? Exam findings show no acute concerns or changes; patient is non-toxic appearing and is in no distress.? Patient is appropriate for outpatient treatment and follow-up.? Medical Records Attestation: I reviewed the patient's medical records. Lab Data Attestation: I reviewed the patient's lab results. Labs: Lab Results 03/07/24 03/07/24 Range/Units 09:01 09:11 POC Influenza A Ag Negative (Negative) POC Influenza B Ag Negative (Negative) POC SARS CoV-2 Ag Negative (Negative) POC Grp A Strep Screen Negative (Negative) Discharge Plan Discharge Clinical Impression: URI (upper respiratory infection) Qualifiers: URI type: acute nasopharyngitis (common cold) Qualified Code(s): J00 - Acute nasopharyngitis [common cold] Patient Disposition: Home, Self-Care Condition: Stable Instructions: Upper Respiratory Infection (ED) Additional Instructions: Your rapid strep swab was negative today at [facility]. A throat culture will be sent to the laboratory for further testing. If the test is positive, you will receive a phone call within 48 hours and an appropriate antibiotic will be initiated at that time. Your Covid and flu are both negative Your symptoms are likely due to a viral illness, which is not treated with antibiotics. Viral symptoms can be present for up to a few weeks. -Alternate Tylenol and Motrin per package directions for fever or pain. -Antihistamine medication such as Benadryl/Zyrtec at night and Claritin/Deidra during the day can help improve symptoms. -Use Flonase twice a day for 5 days then daily to help reduce the inflammation and dry up your sinuses. -You can also use Sudafed behind the pharmacy counter(12 or 24 hour). Be sure to drink plenty of water with these medications at least 8 ounces with every dose and it is important to drink 8 to 10 glasses of water per day. Water is a natural decongestant -Eat and drink things that are easy to swallow, like tea or soup, or popsicles. -Oral rinses such as: Salt water gargles and/or may use topical anesthetic (eg. Chloraseptic spray) or lozenges to relieve dryness or throat pain). -Frequent hand washing or hand supervisor coke handling is one of the best ways to prevent spread of infection. -Using a vaporizer or humidifier at night will also help thin secretions and help with coughing up phlegm. -Follow up with primary care provider in 3-5 days if condition is not improving - For new or worsening symptoms go directly to the nearest ER Patient Language: Scottish Prescriptions: New benzonatate 100 mg capsule 100 mg PO BID PRN (Reason: cough) Qty: 14 0RF fluticasone propionate [Flonase Allergy Relief] 50 mcg/actuation spray,suspension 1 spray intranasal DAILY Qty: 16 0RF Rx Instructions: administer into each nostril loratadine 10 mg tablet 10 mg PO DAILY Qty: 30 0RF Follow-up/Referrals: Baljit Ring MD [Physician] - Time of Disposition: 09:12
[2024-03-07 08:35] VITALS: BP 119/75; PULSE 83; RESP 20; TEMP 37; O2SAT 100
[2024-03-07 09:04] LABS: EDSTREPNEGPOS1 Negative (Negative)
[2024-03-07 09:13] LABS: EDCOVIDSCREEN Negative (Negative); EDINFLUASCREEN Negative (Negative); EDINFLUBSCREEN Negative (Negative)
== END 2024-03-07 09:15 | disposition home or self-care (01) ==
PROVIDERS: Emergency Provider Nurse Practitioner Family
DX: J00 Acute nasopharyngitis [common cold] (principal); Z20.822 Contact with and (suspected) exposure to COVID-19; Z87.891 Personal history of nicotine dependence
CPT/HCPCS: 87081; 87426; 87804; 87880; 99213; G0463

== ENCOUNTER 2024-12-19 09:57 | Outpatient (RCR) | payer BC, MEDICAID, SELFPAY ==
[2024-12-19 11:25] VITALS: BMI 32.5
[2024-12-19 11:27] VITALS: BMI 32.5
--- NOTE | 2024-12-19 11:43 | PCDIET ---
Outpatient nutrition referral completed for weight loss. Thank you for the referral
== END 2025-03-06 13:52 | disposition home or self-care (01) ==
LOC: ANHDMC 09:57
PROVIDERS: PCP Nurse Practitioner Family; Visit Provider Nurse Practitioner Family
DX: Z68.38 Body mass index [BMI] 38.0-38.9, adult (principal); Z71.3 Dietary counseling and surveillance
CPT/HCPCS: 97802

== ENCOUNTER 2025-03-09 04:03 | Emergency (ER) | payer BC, SELFPAY ==
[2025-03-09 04:08] VITALS: BP 112/86; PULSE 91; RESP 20; TEMP 36.8; O2SAT 100
--- NOTE | 2025-03-09 04:23 | ED.EXTPRO ---
HPI - Extremity Problem General Chief complaint: Extremity Problem,Nontraumatic Stated complaint: swollen left ankle Time Seen by Provider: 03/09/25 04:08 History of Present Illness HPI Narrative: 34-year-old female with past medical history including polyarthralgia on daily ibuprofen. Patient presents the emergency depart with left ankle swelling. She states that was nontraumatic in nature and the she noticed that she had worsening swelling localized to left ankle. No pain or swelling in the calf. Denies any injury. Denies any traumatic injuries. Able to ambulate without any assistance. Localized to her left lower extremity she is concerned about a blood clot. No previous history of DVT. No anticoagulation use presently. Was otherwise in her normal state of health. Has had x-rays of the ankle previously without any findings per patient. Related Data Allergies Allergy/AdvReac Type Severity Reaction Status Date / Time cat dander Allergy Mild Wheezing Verified 03/09/25 04:11 dog dander Allergy Mild Wheezing Verified 03/09/25 04:11 grass pollen Allergy Mild Wheezing Verified 03/09/25 04:11 Review of Systems Review of Systems: As reviewed above in HPI All systems reviewed & are unremarkable except as noted in HPI and below PMFSH Past Medical History Medical History Carpal tunnel syndrome on both sides Vaginal discharge Abnormal Papanicolaou smear of cervix with positive human papilloma virus (HPV) test Encounter for IUD insertion 08/2018- PARGARD INSERTION Surgical History Surgical History History of carpal tunnel release of both wrists H/O: hysterectomy S/P laparoscopic hysterectomy Robotic assisted laparoscopic hysterectomy with bilateral salpingectomy and cystoscopy H/O LEEP 03/31/2022 - benign H/O colposcopy with cervical biopsy 02/20/2022 shows NATIVIDAD 2; needs LEEP Family History Family History Mother Breast cancer Other Diabetes mellitus Heart disease Social History Social History Smoking packs per day: 1 Smoking cigarettes per day: 20.0 Years smoked: 8 Smoking pack-years: 8.00 Smoking status: Former smoker Tobacco type: cigarettes Smoking end date: 03/23/14 Alcohol intake: current Alcohol use details: 1/MONTH Substance use: never Substance use type: does not use Lack of Transportation: No Lack of Food: Never True Current Housing: I Have Housing Concerned About Future Housing: No Difficulty Paying Gas/Electric Bills: No Difficulty Paying for Meds: No Currently Unemployed: No Education: Associate Degree Difficulty w/ Childcare or Family Care: No Living arrangements: with family Additional living arrangements comments: DAUGHTER Occupation/Education: occupation Additional occupation/education comments[place] [employer] [place] Gender identity (if verbalized by the patient): Female Sexual Orientation (if Verbalized by the Patient): Straight or Heterosexual Spiritual care concerns: No Exam Narrative: GENERAL: [Well-appearing, well-nourished, and in no acute distress.] HEAD: [Normocephalic, atraumatic.] EYES: [PERRLA and EOMI.] ENT: Nares clear, no rhinorrhea or epistaxis. Mucous membranes moist. NECK: Supple. CHEST: [Clear to auscultation. No respiratory distress.] HEART: [Regular rate and rhythm]. No murmur heard. [Normal peripheral pulses.] ABDOMEN: [Soft, nondistended], [nontender], [No rigidity or guarding] EXTREMITIES: Normal range of motion. Localized edema to the left ankle. Plantar and ankle dorsiflexion does not list any pain or discomfort. Nontender palpation, no overlying skin breakdown or erythema. No signs of cellulitis. No restricted range of motion. SKIN: Warm, dry, no rash. 2+ pulse. Intact capillary refill of each digit. NEURO: [No focal deficits]. Alert and oriented [x3.] PSYCH: [Normal mood and affect.] Course Vital Signs Vital signs: Vital Signs Temperature 36.8 C 03/09/25 04:08 Pulse Rate 91 03/09/25 04:08 Respiratory Rate 20 03/09/25 04:08 Blood Pressure 112/86 03/09/25 04:08 Pulse Oximetry 100 03/09/25 04:08 Oxygen Delivery Room Air 03/09/25 04:08 Temperature 36.8 C 03/09/25 04:08 Pulse Rate 91 03/09/25 04:08 Respiratory Rate 20 03/09/25 04:08 Blood Pressure 112/86 03/09/25 04:08 Pulse Oximetry 100 03/09/25 04:08 Oxygen Delivery Room Air 03/09/25 04:08 MDM MDM Narrative Medical decision making narrative: 34-year-old female with past medical history including polyarthralgia on daily ibuprofen. Patient presents the emergency depart with left ankle swelling. She states that was nontraumatic in nature and the she noticed that she had worsening swelling localized to left ankle. No pain or swelling in the calf. Denies any injury. Denies any traumatic injuries. Able to ambulate without any assistance. Localized to her left lower extremity she is concerned about a blood clot. No previous history of DVT. No anticoagulation use presently. Was otherwise in her normal state of health. Has had x-rays of the ankle previously without any findings per patient. Left ankle is swollen compared to the right but nontraumatic and nontender. No overlying skin changes. No injury. Possibility of a DVT but no clinical history raising high suspicion at this time. We do not have ultrasound at this hour and I discussed with patient plan for routine outpatient ultrasonography and we have contacted Radiology for a 7:00 a.m. appointment slot for her. We discussed return precautions and she will keep the appointment this morning. Differential Diagnosis Differential Diagnosis: Dependent edema, DVT, arthritis Discharge Plan Discharge Clinical Impression: Left leg swelling Patient Disposition: Home Condition: Stable Instructions: Antibiotic Form Additional Instructions: Localized leg swelling, no associated pain. We have scheduled you for an ultrasound this morning to see if there is a blood clot. Return with any emergent concerns or if the test is positive. Follow-up with regular doctor otherwise. Use Jayy wraps and compression as well as Tylenol and ibuprofen for any swelling control. Patient Language: Georgian Prescriptions: No Action ibuprofen 600 mg tablet 600 mg PO TID PRN (Reason: pain) Qty: 90 0RF Zepbound 7.5 mg/0.5 mL pen injector 7.5 mg subcut WEEKLY Qty: 2 0RF Other Ambulatory Orders: US venous doppler LE (Routine) Timeframe: 1 Day Location: Determined by Patient Ordered By: Des Linton Follow-up/Referrals: Sherri Leon APRN [Primary Care Provider, [facility]] Time of Disposition: 04:17
--- OUTSIDE RECORDS SUMMARY | 2025-03-09 04:24 | XMS_ITS | Continuity of Care Document ---
Author Organization [place] [facility],, OFFICE Address [address] [place] [address] Assessment No assessment recorded. Plan of Treatment Reminders Order Date Submit Date Provider Last Modified By Organization Details Last Modified Time Details Appointments ALLERGY INJECTION 2024 03:00P M Nurse Schedule Not available Not available Not available Lab None recorded. Referral None recorded. Procedures allergy injection (PROC) 2024 025 link [facility], [address], [place], [address], 03/03/2025 16:44:10 Surgeries None recorded. Imaging None recorded. Medication Orders None recorded. Patient TargetsNo targets recorded. Patient InstructionsNo instructions recorded. Reason for Referral None Reported. Results Created Date Observation Date Name Description Value Unit Range Abnormal Flag Note LastModifiedBy Organization Detail LastModifiedTime Result Notes None recorded. Problems Name Problem SNOMED Code Status Onset Date Resolution Date Notes Provider Name and Address Organization Details Recorded Time Allergic rhinitis caused by animal dander 210815259 Active JUAN JOSE Suh [address], [place], [address] , [place] [facility], 17:17:15 Problem Notes None recorded. Medical Equipment None Reported. Allergies Allergen ID Allergen Name Allergen Category Reaction Reaction Severity Criticality Documentation Date Start Date Code Code System Note Provider Name and Address Organization Details Recorded Time 56005 Canis lupus familiari s extract environme nt hives Not available high 02/27/20252024 57428 4 RxNorm Not Available ranjana - External Data Service - prod 5 14:54:12 No known drug allergies Medications Name Sig Start Date Stop Date Status Note LastModified by Organization Details LastModified Time moxifloxaci n 400 mg tablet TAKE 1 TABLET BY MOUTH EVERY DAY FOR 7 DAYS active Not Available Not Available No t Available metronidazo le 500 mg tablet TAKE 1 TABLET BY MOUTH EVERY 12 HOURS FOR 7 DAYS. DO NOT DRINK ALCOHOL WHEN TAKING THIS ANTIBIOTI C active Not Available Not Available No t Available tretinoin 0.05 % topical cream APPLY CREAM TOPICALLY TO AFFECTED AREA OF FACE NIGHTLY MOISTURIZ E AFTER active Not Available Not Available No t Available benzonatate 100 mg capsule TAKE 1 CAPSULE BY MOUTH TWICE A DAY NEEDED FOR COUGH 05/05 completed Not Available Not Available Not Available docusate sodium 100 mg capsule TAKE ONE CAPSULE BY MOUTH TWICE DAILY active Not Available Not Available No t Available epinephrine 0.3 mg/0.3 mL injection, auto-inject or USE ONCE NEEDED BY INJECTION ROUTE. active Not Available Not Available No t Available ibuprofen 600 mg tablet TAKE 1 TABLET BY MOUTH EVERY 6 HOURS FOR 10 DAYS active Not Available Not Available No t Available clobetasol 0.05 % scalp solution APPLY TO SCALP DAILY FOR 2 WEEKS ON AND 2 WEEKS OFF FOR 3 MONTHS active Not Available Not Available No t Available fluticasone propionate 50 mcg/actuati on nasal spray,suspe nsion INSTILL 1 SPRAY INTO EACH NOSTRIL ONCE DAILY active Not Available Not Available No t Available doxycycline hyclate 100 mg tablet USE BEFORE TAKING MOXIFLOXA NATIVIDAD, TAKE 1 TABLET BY MOUTH TWICE A DAY FOR 7 DAYS 05/05 completed Not Available Not Available Not Available loratadine 10 mg tablet TAKE 1 TABLET BY MOUTH EVERY DAY active Not Available Not Available No t Available oxycodone 5 mg tablet TAKE 1 TO 2 TABLETS BY MOUTH EVERY 4 TO 6 HOURS NEEDED FOR SEVERE PAIN. NOT TO EXCEED 8 TABLETS IN 24 HOURS active Not Available Not Available No t Available Vitals None Recorded Social History None recorded. Functional Status None recorded. Mental Status None recorded. Family History Nothing Reported. Medical History No medical history recorded. Gynecological HistoryNo gynecological history recorded. Obstetrics History GPAL:G 0 P 0 0 0 0 Past Encounters Encounter ID Performer Location Encounter Start Date Encounter Closed Date Diagnosis/Indication Diagnosis SNOMED-CT Code Diagnosis ICD10 Code Diagnosis IMO Codes Diagnosis Note [id number] González mota MD OFFICE [address] [place] [phone] 03/03/2025 16:19:07 03/03/2025 16:58:35 Allergic rhinitis caused by animal dander 710818296 J30.81 071210 Patient received allergy immunother apy (3 INJECTIONS ) per patient's AIT regimen. No complicati ons noted. Patient to return per AIT treatment regimen schedule. 3 INJ Health Concerns Section Related Observation LastModified by Organization Detai ls LastModified Time None Recorded Concern Status LastModified by Organization Details LastModified Time None Recorded Payers Encounter Date Sequence Insurance Name Policy Number Policy Gonzalez Covered Member ID Gonzalez Member ID Guarantor Name 03/03/2025 1 [employer] [id number] Sherri Baez [id number] Sherri Baez OBGyn Episode No OBEpisode recorded.
--- OUTSIDE RECORDS SUMMARY | 2025-03-09 04:25 | XMS_ITS | Clinical Summary ---
Author Organization [facility] Address [address] [place] [address] Care Team Providers Care Insurance Professional Name Role Phone Unavailable Primary Care Provider Unavailabl e Social History Tobacco Use Types Packs/Day Years Used Date Smoking Tobacco: Never Assessed Comments Unknown Sex and Gender Information Value Date Recorded Sex Assigned at Not on file Legal Sex Female 12:41 AM PST Gender Identity Not on file Sexual Orientation Not on file Plan of Treatment Not on file
--- OUTSIDE RECORDS SUMMARY | 2025-03-09 04:25 | XMS_ITS | Encounter Summary ---
Author Organization [facility] Health Address [address] [place] [address] Care Team Providers Care Certified Coding Specialist Name Role Phone Unavailable Primary Care Provider Unavailabl e Prior Encounters Date Type Department Care Team Description 04/11/2019 Converted CPS Chart Documents [facility] [address] [place] [id number] <No scans attached> 04/11/2019 Converted 13x Documents [facility] [address] [place] [id number] <No scans attached> Plan of Treatment Not on file Procedures Procedure Name Priority Date/Time Associated Diagnosis Comments MISSED APPOINTMENT Routine 09/30/2016 2: 00 AM CDT 30 CORE BUILDUP, INCLUDING ANY PINS WHEN REQUIRED Routine 03/25/2016 2:00 AM THERMOMETER TESTER 14 AMALGAM 3 SURFACE Routine 017 2:00 AM THERMOMETER TESTER 15 CERECFIRED CROWNPOST Routine 03/25/19 17 2:00 AM THERMOMETER TESTER 30 ENDODONTIC THERAPY, MOLAR TOOTH (EXCLUDING FINAL TEMPLE) Routine 03/25/2016 2:00 AM THERMOMETER TESTER ORAL HYGIENE INSTRUCTIONS Routine 2016 2:00 AM THERMOMETER TESTER TOPICAL APPLICATION OF FLUORIDE VARNISH Routine 03/25/2016 2:00 AM THERMOMETER TESTER PROPHYLAXIS - ADULT Routine 03/25/2016 2 :00 AM THERMOMETER TESTER COMPREHENSIVE ORAL EVALUATION - NEW OR ESTABLISHED PATIENT Routine 03/25/2016 2:00 AM THERMOMETER TESTER PANORAMIC RADIOGRAPHIC IMAGE Routine 03/25/2016 2:00 AM THERMOMETER TESTER INTRAORAL - COMPREHENSIVE SERIES OF RADIOGRAPHIC IMAGES Routine 03/25/2016 2:00 AM THERMOMETER TESTER INTRAORAL PHOTO Routine 03/25/2016 2:00 AM THERMOMETER TESTER INTRAORAL PHOTO Routine 03/25/2016 2:00 AM THERMOMETER TESTER INTRAORAL PHOTO Routine 03/25/2016 2:00 AM THERMOMETER TESTER INTRAORAL PHOTO Routine 03/25/2016 2:00 AM THERMOMETER TESTER 12 DO COMPOSITE FILLING Routine 03/25/19 17 2:00 AM THERMOMETER TESTER 5 DO COMPOSITE FILLING Routine 7 2:00 AM THERMOMETER TESTER 19 O COMPOSITE FILLING Routine 7 2:00 AM THERMOMETER TESTER 14 M COMPOSITE FILLING Routine 7 2:00 AM THERMOMETER TESTER 3 O COMPOSITE FILLING Routine 03/25/2016 2:00 AM THERMOMETER TESTER Visit Diagnoses Not on file
--- OUTSIDE RECORDS SUMMARY | 2025-03-09 04:25 | XMS_ITS | Clinical Summary ---
Author Organization [facility] [address] [facility] Address [address] [place] [address] Care Team Providers Care Printed Circuit Board Assembler Name Role Phone Mitra Leonica NATURAL SCIENCE CURATOR Primary Care Provider [phone] Allergies Active Allergy Reactions Criticality Noted Date Comments Cat Dander Eye irritation,Itching Low 1988 Dog Dander Hives Medium 01/24/2025 Grass Pollen Cough,Eye irritation,Itching Low 08/28 Medications acetaminophen-c odeine (TYLENOL with CODEINE #3) 300-30 mg per tablet TK 1 OR 2 TS PO Q 4 H PRN P Active docusate sodium (COLACE) 100 mg capsule Take by mouth daily as needed Active EPINEPHrine 0.3 mg/0.3 mL auto-injection syringe USE ONCE NEEDED BY INJECTION ROUTE. 5 Active fluticasone propionate (FLONASE) 50 mcg/actuation nasal spray SPRAY 1 SPRAY BY INTRANASAL ROUTE EVERY DAY Active fluticasone propionate (FLOVENT DISKUS) 50 mcg/actuation diskus inhaler Inhalation 2 Active ibuprofen (ADVIL,MOTRIN) 600 mg tablet 5 Active loratadine (Claritin) 10 mg tablet Active Zepbound 7.5 mg/0.5 mL pen injector INJECT 7.5MG UNDER THE SKIN ONCE WEEKLY 5 Active Active Problems No known active problems Encounters Date Type Department Care Team Description 01/24/2025 10:44 AM PERIPHERAL VASCULAR TECH - 01/24/2025 11:59 PM PERIPHERAL VASCULAR TECH Hospital Encounter [address] [address] Polyarthralgia Discharge Disposition: Discharge to home or self care 01/24/2025 10:20 AM PERIPHERAL VASCULAR TECH - 01/24/2025 11:59 PM PERIPHERAL VASCULAR TECH Hospital Encounter [facility] [address] [place] [address] Bharath Thomson MD PhD Arthralgia, unspecified joint; Polyarthralgia Discharge Disposition: Discharge to home or self care 01/24/2025 10:15 AM PERIPHERAL VASCULAR TECH Lab [facility] Medicine Endocrinology Metabolism and Lipid [address] [facility] [address] [place] [address] Arthralgia, unspecified joint 01/24/2025 9:00 AM PERIPHERAL VASCULAR TECH Office Visit [facility] Medicine Rheumatology [address] [facility] [address] [place] [address] Bharath Thomson MD PhD Polyarthralgia (Primary Dx); Bilateral carpal tunnel syndrome; Dry eyes; Dry mouth from Last 3 Months Social History Tobacco Use Types Packs/Day Years Used Date Smoking Tobacco: Former Cigarettes S tarted: 2005 Passive Smoke Exposure: Never Smokeless Tobacco: Never Tobacco Cessation:Counseling Given: Not Answered Comments Unknown Sex and Gender Information Value Date Recorded Sex Assigned at Not on file Legal Sex Female 12:11 PM CDT Gender Identity Female 01/17/2025 6:53 AM CDT Sexual Orientation Asexual 01/17/2025 6: 53 AM CDT Last Filed Vital Signs Vital Sign Reading Time Taken Comments Blood Pressure 103/75 01/24/2025 9:13 AM PERIPHERAL VASCULAR TECH Pulse 98 01/24/2025 9:13 AM PERIPHERAL VASCULAR TECH Temperature 36.7 C (98.1 F) 01/24/2025 9:13 AM PERIPHERAL VASCULAR TECH Respiratory Rate - - Oxygen Saturation - - Inhaled Oxygen Concentration - - Weight 83.5 kg (184 lb) 01/24/2025 9:13 AM PERIPHERAL VASCULAR TECH Height 162.6 cm (5' 4) 01/24/2025 9:13 AM PERIPHERAL VASCULAR TECH Body Mass Index 31.58 01/24/2025 9:13 AM PERIPHERAL VASCULAR TECH Plan of Treatment Health Maintenance Due Date Last Done Comments Cervical Cancer Screening 1988 Depression Screening 1988 Hepatitis C Screening 1988 Varicella Vaccines (1 of 2 - 13+ 2-dose series) 2001 Regular Well Visit/Exam 18-64 2006 HPV Vaccines (3 - 3-dose SCD M series) 09/19/2022 05/21/2022, 03/21/2022 Covid-19 Vaccine (3 - 2024-2 6 season) 2024 08/24/2020, 07/27/2020 Influenza Vaccine (#1) 2024 12/05/2013 DTaP/Tdap/Td Vaccine (4 - Td or Tdap) 03/19/2031 03/19/2021, 06/07/2018, 10/17/2015 Hepatitis B Screening Completed 05/18/1999 , 12/13/1998, 11/12/1998 Pneumococcal vaccine <65 Aged Out No longer eligible based on patient's age to complete this topic Procedures Procedure Name Priority Date/Time Associated Diagnosis Comments XR ANKLE LEFT 3 OR MORE VIEWS Schedule Routine, Read Routine (OP Routine) 01/24/2025 10:49 AM PERIPHERAL VASCULAR TECH Polyarthralgia XR KNEE LEFT 3 VIEWS Schedule Routine, Read Routine (OP Routine) 01/24/2025 10:49 AM PERIPHERAL VASCULAR TECH Polyarthralgia XR WRIST LEFT 3 OR MORE VIEWS Schedule Routine, Read Routine (OP Routine) 01/24/2025 10:49 AM PERIPHERAL VASCULAR TECH Polyarthralgia XR WRIST RIGHT 3 OR MORE VIEWS Schedule Routine, Read Routine (OP Routine) 01/24/2025 10:49 AM PERIPHERAL VASCULAR TECH Polyarthralgia XR HAND LEFT 3 OR MORE VIEWS Schedule Routine, Read Routine (OP Routine) 01/24/2025 10:49 AM PERIPHERAL VASCULAR TECH Polyarthralgia XR HAND RIGHT 3 OR MORE VIEWS Schedule Routine, Read Routine (OP Routine) 01/24/2025 10:49 AM PERIPHERAL VASCULAR TECH Polyarthralgia XR ANKLE RIGHT 3 OR MORE VIEWS Schedule Routine, Read Routine (OP Routine) 01/24/2025 10:49 AM PERIPHERAL VASCULAR TECH Arthralgia, unspecified joint PAIGE QUALITATIVE WITH REFLEX TO PAIGE QUANTITATIVE Routine 01/24/2025 10:14 AM PERIPHERAL VASCULAR TECH Polyarthralgia C4 COMPLEMENT Routine 01/24/2025 10:14 AM PERIPHERAL VASCULAR TECH Polyarthralgia C3 COMPLEMENT Routine 01/24/2025 10:14 AM PERIPHERAL VASCULAR TECH Polyarthralgia GLADYS ANTIBODY EVALUATION WITH REFLEX Routine 01/24/2025 10:14 AM PERIPHERAL VASCULAR TECH Polyarthralgia ANTI-DOUBLE STRANDED DNA ANTIBODIES Routine 01/24/2025 10:14 AM PERIPHERAL VASCULAR TECH Polyarthralgia ERYTHROCYTE SEDIMENTATION RATE Routine 01/24/2025 10:14 AM PERIPHERAL VASCULAR TECH Arthralgia, unspecified joint CRP, HIGH SENSITIVITY Routine 01/24/2025 10:14 AM PERIPHERAL VASCULAR TECH Arthralgia, unspecified joint from Last 3 Months Results * XR Ankle Right 3 or More Views (01/24/2025 10:49 AM PERIPHERAL VASCULAR TECH) Anatomical Region Laterality Modality Lower Extremities, Ankle Right Compute d Radiography 01/24/2025 12:1 1 PM PERIPHERAL VASCULAR TECH Impressions 01/24/2025 12:11 PM PERIPHERAL VASCULAR TECH No radiographic evidence of inflammatory arthritis. Electronically signed by: Madhu Winchester M.D. Narrative 01/24/2025 12:11 PM PERIPHERAL VASCULAR TECH EXAMINATION: XR ANKLE RIGHT 3 OR MORE VIEWS, XR HAND RIGHT 3 OR MORE VIEWS, XR HAND LEFT 3 OR MORE VIEWS, XR WRIST RIGHT 3 OR MORE VIEWS, XR WRIST LEFT 3 OR MORE VIEWS, XR KNEE LEFT 3 VIEWS, XR ANKLE LEFT 3 OR MORE VIEWS HISTORY: Joint pain FINDINGS: 3 views of each hand and each wrist were performed without comparison. Alignment of both hands and wrists is normal. Joint spaces are normal. There is no erosion. 3 views of each ankle were performed. Bilateral ankle and subtalar joint spaces are normal. There is no erosion. There is a small left heel spur. There is no acute fracture. 3 views of the left knee were performed. There is no left knee joint effusion. There is no acute fracture. Joint spaces are normal. Procedure Note Madhu Winchester MD PhD - 01/24/2025 EXAMINATION: XR ANKLE RIGHT 3 OR MORE VIEWS, XR HAND RIGHT 3 OR MORE VIEWS, XR HAND LEFT 3 OR MORE VIEWS, XR WRIST RIGHT 3 OR MORE VIEWS, XR WRIST LEFT 3 OR MORE VIEWS, XR KNEE LEFT 3 VIEWS, XR ANKLE LEFT 3 OR MORE VIEWS HISTORY: Joint pain FINDINGS: 3 views of each hand and each wrist were performed without comparison. Alignment of both hands and wrists is normal. Joint spaces are normal. There is no erosion. 3 views of each ankle were performed. Bilateral ankle and subtalar joint spaces are normal. There is no erosion. There is a small left heel spur. There is no acute fracture. 3 views of the left knee were performed. There is no left knee joint effusion. There is no acute fracture. Joint spaces are normal. IMPRESSION: No radiographic evidence of inflammatory arthritis. Electronically signed by: Madhu Winchester M.D. us Bharath Thomson MD PhD IMG XR PROCEDURES F inal Result * XR Ankle Left 3 or More Views (01/24/2025 10:49 AM PERIPHERAL VASCULAR TECH) Anatomical Region Laterality Modality Lower Extremities, Ankle Left Compute d Radiography 01/24/2025 12:1 1 PM PERIPHERAL VASCULAR TECH Impressions 01/24/2025 12:11 PM PERIPHERAL VASCULAR TECH No radiographic evidence of inflammatory arthritis. Electronically signed by: Madhu Winchester M.D. Narrative 01/24/2025 12:11 PM PERIPHERAL VASCULAR TECH EXAMINATION: XR ANKLE RIGHT 3 OR MORE VIEWS, XR HAND RIGHT 3 OR MORE VIEWS, XR HAND LEFT 3 OR MORE VIEWS, XR WRIST RIGHT 3 OR MORE VIEWS, XR WRIST LEFT 3 OR MORE VIEWS, XR KNEE LEFT 3 VIEWS, XR ANKLE LEFT 3 OR MORE VIEWS HISTORY: Joint pain FINDINGS: 3 views of each hand and each wrist were performed without comparison. Alignment of both hands and wrists is normal. Joint spaces are normal. There is no erosion. 3 views of each ankle were performed. Bilateral ankle and subtalar joint spaces are normal. There is no erosion. There is a small left heel spur. There is no acute fracture. 3 views of the left knee were performed. There is no left knee joint effusion. There is no acute fracture. Joint spaces are normal. Procedure Note Madhu Winchester MD PhD - 01/24/2025 EXAMINATION: XR ANKLE RIGHT 3 OR MORE VIEWS, XR HAND RIGHT 3 OR MORE VIEWS, XR HAND LEFT 3 OR MORE VIEWS, XR WRIST RIGHT 3 OR MORE VIEWS, XR WRIST LEFT 3 OR MORE VIEWS, XR KNEE LEFT 3 VIEWS, XR ANKLE LEFT 3 OR MORE VIEWS HISTORY: Joint pain FINDINGS: 3 views of each hand and each wrist were performed without comparison. Alignment of both hands and wrists is normal. Joint spaces are normal. There is no erosion. 3 views of each ankle were performed. Bilateral ankle and subtalar joint spaces are normal. There is no erosion. There is a small left heel spur. There is no acute fracture. 3 views of the left knee were performed. There is no left knee joint effusion. There is no acute fracture. Joint spaces are normal. IMPRESSION: No radiographic evidence of inflammatory arthritis. Electronically signed by: Madhu Winchester M.D. Bharath Thomson MD PhD IMG XR PROCEDURES F inal Result * XR Knee Left 3 Views (01/24/2025 10:49 AM PERIPHERAL VASCULAR TECH) Anatomical Region Laterality Modality Lower Extremities, Knee Left Computed Radiography 01/24/2025 12:1 1 PM PERIPHERAL VASCULAR TECH Impressions 01/24/2025 12:11 PM PERIPHERAL VASCULAR TECH No radiographic evidence of inflammatory arthritis. Electronically signed by: Madhu Winchester M.D. Narrative 01/24/2025 12:11 PM PERIPHERAL VASCULAR TECH EXAMINATION: XR ANKLE RIGHT 3 OR MORE VIEWS, XR HAND RIGHT 3 OR MORE VIEWS, XR HAND LEFT 3 OR MORE VIEWS, XR WRIST RIGHT 3 OR MORE VIEWS, XR WRIST LEFT 3 OR MORE VIEWS, XR KNEE LEFT 3 VIEWS, XR ANKLE LEFT 3 OR MORE VIEWS HISTORY: Joint pain FINDINGS: 3 views of each hand and each wrist were performed without comparison. Alignment of both hands and wrists is normal. Joint spaces are normal. There is no erosion. 3 views of each ankle were performed. Bilateral ankle and subtalar joint spaces are normal. There is no erosion. There is a small left heel spur. There is no acute fracture. 3 views of the left knee were performed. There is no left knee joint effusion. There is no acute fracture. Joint spaces are normal. Procedure Note Madhu Winchester MD PhD - 01/24/2025 EXAMINATION: XR ANKLE RIGHT 3 OR MORE VIEWS, XR HAND RIGHT 3 OR MORE VIEWS, XR HAND LEFT 3 OR MORE VIEWS, XR WRIST RIGHT 3 OR MORE VIEWS, XR WRIST LEFT 3 OR MORE VIEWS, XR KNEE LEFT 3 VIEWS, XR ANKLE LEFT 3 OR MORE VIEWS HISTORY: Joint pain FINDINGS: 3 views of each hand and each wrist were performed without comparison. Alignment of both hands and wrists is normal. Joint spaces are normal. There is no erosion. 3 views of each ankle were performed. Bilateral ankle and subtalar joint spaces are normal. There is no erosion. There is a small left heel spur. There is no acute fracture. 3 views of the left knee were performed. There is no left knee joint effusion. There is no acute fracture. Joint spaces are normal. IMPRESSION: No radiographic evidence of inflammatory arthritis. Electronically signed by: Madhu Winchester M.D. Bharath Thomson MD PhD IMG XR PROCEDURES F inal Result * XR Hand Right 3 or More Views (01/24/2025 10:49 AM PERIPHERAL VASCULAR TECH) Anatomical Region Laterality Modality Upper Extremities, Hand Right Computed Radiography 01/24/2025 12:1 1 PM PERIPHERAL VASCULAR TECH Impressions 01/24/2025 12:11 PM PERIPHERAL VASCULAR TECH No radiographic evidence of inflammatory arthritis. Electronically signed by: Madhu Winchester M.D. Narrative 01/24/2025 12:11 PM PERIPHERAL VASCULAR TECH EXAMINATION: XR ANKLE RIGHT 3 OR MORE VIEWS, XR HAND RIGHT 3 OR MORE VIEWS, XR HAND LEFT 3 OR MORE VIEWS, XR WRIST RIGHT 3 OR MORE VIEWS, XR WRIST LEFT 3 OR MORE VIEWS, XR KNEE LEFT 3 VIEWS, XR ANKLE LEFT 3 OR MORE VIEWS HISTORY: Joint pain FINDINGS: 3 views of each hand and each wrist were performed without comparison. Alignment of both hands and wrists is normal. Joint spaces are normal. There is no erosion. 3 views of each ankle were performed. Bilateral ankle and subtalar joint spaces are normal. There is no erosion. There is a small left heel spur. There is no acute fracture. 3 views of the left knee were performed. There is no left knee joint effusion. There is no acute fracture. Joint spaces are normal. Procedure Note Madhu Winchester MD PhD - 01/24/2025 EXAMINATION: XR ANKLE RIGHT 3 OR MORE VIEWS, XR HAND RIGHT 3 OR MORE VIEWS, XR HAND LEFT 3 OR MORE VIEWS, XR WRIST RIGHT 3 OR MORE VIEWS, XR WRIST LEFT 3 OR MORE VIEWS, XR KNEE LEFT 3 VIEWS, XR ANKLE LEFT 3 OR MORE VIEWS HISTORY: Joint pain FINDINGS: 3 views of each hand and each wrist were performed without comparison. Alignment of both hands and wrists is normal. Joint spaces are normal. There is no erosion. 3 views of each ankle were performed. Bilateral ankle and subtalar joint spaces are normal. There is no erosion. There is a small left heel spur. There is no acute fracture. 3 views of the left knee were performed. There is no left knee joint effusion. There is no acute fracture. Joint spaces are normal. IMPRESSION: No radiographic evidence of inflammatory arthritis. Electronically signed by: Madhu Winchester M.D. Bharath Thomson MD PhD IMG XR PROCEDURES F inal Result * XR Hand Left 3 or More Views (01/24/2025 10:49 AM PERIPHERAL VASCULAR TECH) Anatomical Region Laterality Modality Upper Extremities, Hand Left Computed Radiography 01/24/2025 12:1 1 PM PERIPHERAL VASCULAR TECH Impressions 01/24/2025 12:11 PM PERIPHERAL VASCULAR TECH No radiographic evidence of inflammatory arthritis. Electronically signed by: Madhu Winchester M.D. Narrative 01/24/2025 12:11 PM PERIPHERAL VASCULAR TECH EXAMINATION: XR ANKLE RIGHT 3 OR MORE VIEWS, XR HAND RIGHT 3 OR MORE VIEWS, XR HAND LEFT 3 OR MORE VIEWS, XR WRIST RIGHT 3 OR MORE VIEWS, XR WRIST LEFT 3 OR MORE VIEWS, XR KNEE LEFT 3 VIEWS, XR ANKLE LEFT 3 OR MORE VIEWS HISTORY: Joint pain FINDINGS: 3 views of each hand and each wrist were performed without comparison. Alignment of both hands and wrists is normal. Joint spaces are normal. There is no erosion. 3 views of each ankle were performed. Bilateral ankle and subtalar joint spaces are normal. There is no erosion. There is a small left heel spur. There is no acute fracture. 3 views of the left knee were performed. There is no left knee joint effusion. There is no acute fracture. Joint spaces are normal. Procedure Note Madhu Winchester MD PhD - 01/24/2025 EXAMINATION: XR ANKLE RIGHT 3 OR MORE VIEWS, XR HAND RIGHT 3 OR MORE VIEWS, XR HAND LEFT 3 OR MORE VIEWS, XR WRIST RIGHT 3 OR MORE VIEWS, XR WRIST LEFT 3 OR MORE VIEWS, XR KNEE LEFT 3 VIEWS, XR ANKLE LEFT 3 OR MORE VIEWS HISTORY: Joint pain FINDINGS: 3 views of each hand and each wrist were performed without comparison. Alignment of both hands and wrists is normal. Joint spaces are normal. There is no erosion. 3 views of each ankle were performed. Bilateral ankle and subtalar joint spaces are normal. There is no erosion. There is a small left heel spur. There is no acute fracture. 3 views of the left knee were performed. There is no left knee joint effusion. There is no acute fracture. Joint spaces are normal. IMPRESSION: No radiographic evidence of inflammatory arthritis. Electronically signed by: Madhu Winchester M.D. us Bharath Thomson MD PhD IMG XR PROCEDURES F inal Result * XR Wrist Right 3 or More Views (01/24/2025 10:49 AM PERIPHERAL VASCULAR TECH) Anatomical Region Laterality Modality Upper Extremities, Wrist Right Compute d Radiography 01/24/2025 12:1 1 PM PERIPHERAL VASCULAR TECH Impressions 01/24/2025 12:11 PM PERIPHERAL VASCULAR TECH No radiographic evidence of inflammatory arthritis. Electronically signed by: Madhu Winchester M.D. Narrative 01/24/2025 12:11 PM PERIPHERAL VASCULAR TECH EXAMINATION: XR ANKLE RIGHT 3 OR MORE VIEWS, XR HAND RIGHT 3 OR MORE VIEWS, XR HAND LEFT 3 OR MORE VIEWS, XR WRIST RIGHT 3 OR MORE VIEWS, XR WRIST LEFT 3 OR MORE VIEWS, XR KNEE LEFT 3 VIEWS, XR ANKLE LEFT 3 OR MORE VIEWS HISTORY: Joint pain FINDINGS: 3 views of each hand and each wrist were performed without comparison. Alignment of both hands and wrists is normal. Joint spaces are normal. There is no erosion. 3 views of each ankle were performed. Bilateral ankle and subtalar joint spaces are normal. There is no erosion. There is a small left heel spur. There is no acute fracture. 3 views of the left knee were performed. There is no left knee joint effusion. There is no acute fracture. Joint spaces are normal. Procedure Note Madhu Winchester MD PhD - 01/24/2025 EXAMINATION: XR ANKLE RIGHT 3 OR MORE VIEWS, XR HAND RIGHT 3 OR MORE VIEWS, XR HAND LEFT 3 OR MORE VIEWS, XR WRIST RIGHT 3 OR MORE VIEWS, XR WRIST LEFT 3 OR MORE VIEWS, XR KNEE LEFT 3 VIEWS, XR ANKLE LEFT 3 OR MORE VIEWS HISTORY: Joint pain FINDINGS: 3 views of each hand and each wrist were performed without comparison. Alignment of both hands and wrists is normal. Joint spaces are normal. There is no erosion. 3 views of each ankle were performed. Bilateral ankle and subtalar joint spaces are normal. There is no erosion. There is a small left heel spur. There is no acute fracture. 3 views of the left knee were performed. There is no left knee joint effusion. There is no acute fracture. Joint spaces are normal. IMPRESSION: No radiographic evidence of inflammatory arthritis. Electronically signed by: Madhu Winchester M.D. us Bharath Thomson MD PhD IMG XR PROCEDURES F inal Result * XR Wrist Left 3 or More Views (01/24/2025 10:49 AM PERIPHERAL VASCULAR TECH) Anatomical Region Laterality Modality Upper Extremities, Wrist Left Compute d Radiography 01/24/2025 12:1 1 PM PERIPHERAL VASCULAR TECH Impressions 01/24/2025 12:11 PM PERIPHERAL VASCULAR TECH No radiographic evidence of inflammatory arthritis. Electronically signed by: Madhu Winchester M.D. Narrative 01/24/2025 12:11 PM PERIPHERAL VASCULAR TECH EXAMINATION: XR ANKLE RIGHT 3 OR MORE VIEWS, XR HAND RIGHT 3 OR MORE VIEWS, XR HAND LEFT 3 OR MORE VIEWS, XR WRIST RIGHT 3 OR MORE VIEWS, XR WRIST LEFT 3 OR MORE VIEWS, XR KNEE LEFT 3 VIEWS, XR ANKLE LEFT 3 OR MORE VIEWS HISTORY: Joint pain FINDINGS: 3 views of each hand and each wrist were performed without comparison. Alignment of both hands and wrists is normal. Joint spaces are normal. There is no erosion. 3 views of each ankle were performed. Bilateral ankle and subtalar joint spaces are normal. There is no erosion. There is a small left heel spur. There is no acute fracture. 3 views of the left knee were performed. There is no left knee joint effusion. There is no acute fracture. Joint spaces are normal. Procedure Note Madhu Winchester MD PhD - 01/24/2025 EXAMINATION: XR ANKLE RIGHT 3 OR MORE VIEWS, XR HAND RIGHT 3 OR MORE VIEWS, XR HAND LEFT 3 OR MORE VIEWS, XR WRIST RIGHT 3 OR MORE VIEWS, XR WRIST LEFT 3 OR MORE VIEWS, XR KNEE LEFT 3 VIEWS, XR ANKLE LEFT 3 OR MORE VIEWS HISTORY: Joint pain FINDINGS: 3 views of each hand and each wrist were performed without comparison. Alignment of both hands and wrists is normal. Joint spaces are normal. There is no erosion. 3 views of each ankle were performed. Bilateral ankle and subtalar joint spaces are normal. There is no erosion. There is a small left heel spur. There is no acute fracture. 3 views of the left knee were performed. There is no left knee joint effusion. There is no acute fracture. Joint spaces are normal. IMPRESSION: No radiographic evidence of inflammatory arthritis. Electronically signed by: Madhu Winchester M.D. us Bharath Thomson MD PhD IMG XR PROCEDURES F inal Result * PAIGE ab ql w/rflx to PAIGE qn (01/24/2025 10:14 AM PERIPHERAL VASCULAR TECH) PAIGE Negative Comment: Interpretive Data Normal range for PAIGE Qualitative Antibody = Negative. 1. PAIGE is performed using indirect immunofluorescence against HEp-2 cells 2. PAIGE titers are performed on all positive qualitative results. 3. A significantly positive PAIGE result is defined as a positive nuclear fluorescence at a titer of 1:80 or greater. 4. 15% of normal people above age 65 have significantly positive PAIGE results. 5% or less of normal people age 65 or under have significantly positive PAIGE results. Current interpretive data was last revised on 2019. Blood 01/24/2025 10:1 4 AM PERIPHERAL VASCULAR TECH 01/24/2025 11:41 AM PERIPHERAL VASCULAR TECH us Bharath Thomson MD PhD LAB BLOOD ORDERABLE S Final Result Performing Organization Address [facility] de Phone Number [facility] [place] [address] * Anti-double stranded DNA abs (01/24/2025 10:14 AM PERIPHERAL VASCULAR TECH) dsDNA Ab 1.0 <=4.0 IUnits/mL Comment: Interpretive Data Negative: < or = 4 IUnits/mL Indeterminate: 5 - 9 IUnits/mL Positive: > or = 10 IUnits/mL Current interpretive data was last revised on 2016. Blood 01/24/2025 10:1 4 AM PERIPHERAL VASCULAR TECH 01/24/2025 11:41 AM PERIPHERAL VASCULAR TECH us Bharath Thomson MD PhD LAB BLOOD ORDERABLE S Final Result Performing Organization Address [facility] de Phone Number [facility] [place] [place] [address] * C4 complement (01/24/2025 10:14 AM PERIPHERAL VASCULAR TECH) Complement C4 26.3 10.0 - 40.0 mg/dL Blood 01/24/2025 10:1 4 AM PERIPHERAL VASCULAR TECH 01/24/2025 11:41 AM PERIPHERAL VASCULAR TECH Bharath Thomson MD PhD LAB BLOOD ORDERABLE S Final Result Performing Organization Address [facility]/State/ZIP Co de Phone Number DEBBIE [facility] [place] [address] * GLADYS ab eval w/reflex (01/24/2025 10:14 AM PERIPHERAL VASCULAR TECH) GLADYS ab Negative Negative Comment: Interpretive Data Positive Screens will be reflexed to specific testing for Antibodies against the following antigens: Pam-1 Ab, HOG SCRAPER Ab, Scl-70 Ab, Sierra Ab, SS-A/Ro Ab, and SS- B/La Ab. Further testing for dsDNA, Centromere, or Ribosomal P antibodies is suggested in patient with a positive screen and negative specific antibodies. Current interpretive data was last revised on 2022. Blood 01/24/2025 10:1 4 AM PERIPHERAL VASCULAR TECH 01/24/2025 11:41 AM PERIPHERAL VASCULAR TECH us Bharath Thomson MD PhD LAB BLOOD ORDERABLE S Final Result Performing Organization Address [facility] Co de Phone Number DEBBIE [facility] [place] [address] * Erythrocyte sedimentation rate (01/24/2025 10:14 AM PERIPHERAL VASCULAR TECH) Pathologist [facility] Erythrocyte Sedimentation Rate 19 <20 mm/hr [facility] Blood 01/24/2025 10:1 4 AM PERIPHERAL VASCULAR TECH 01/24/2025 10:55 AM PERIPHERAL VASCULAR TECH Narrative [facility] - 01/24/2025 11:40 AM PERIPHERAL VASCULAR TECH 8 us Bharath Thomson MD PhD LAB BLOOD ORDERABLE S Final Result [facility] * C3 complement (01/24/2025 10:14 AM PERIPHERAL VASCULAR TECH) Complement C3 139.0 90.0 - 180.0 mg/dL Blood 01/24/2025 10:1 4 AM PERIPHERAL VASCULAR TECH 01/24/2025 11:41 AM PERIPHERAL VASCULAR TECH us Bharath Thomson MD PhD LAB BLOOD ORDERABLE S Final Result [facility] SALDANA [facility] [place] [address] * CRP (cardiac risk) (01/24/2025 10:14 AM PERIPHERAL VASCULAR TECH) CRP, High Sensitivity 1.11 0.00 - 3.00 mg/L [facility] Comment: hsCRP Cardiovascular Risk Assessment Less than 1.0 mg/L = Low Risk 1.0 - 3.0 mg/L = Average Risk More than 3.0 mg/L = High Risk Blood 01/24/2025 10:1 4 AM PERIPHERAL VASCULAR TECH 01/24/2025 10:55 AM PERIPHERAL VASCULAR TECH Narrative [facility] - 01/24/2025 11:40 AM PERIPHERAL VASCULAR TECH 8 us Bharath Thomson MD PhD LAB BLOOD ORDERABLE S Final Result [facility] from Last 3 Months Insurance [employer] Care Teams Printed Circuit Board Assembler Relationship Specialty Start Date End Date Sherri Leon NP [address] [place] [address] PCP - General Family Practice 11/04/24
--- OUTSIDE RECORDS SUMMARY | 2025-03-09 04:25 | XMS_ITS | Clinical Summary ---
Author Organization [facility] Address [address] [place] [address] Care Team Providers Care Rounding Machine Operator Name Role Phone Candi Sy MD Primary Care Provider [phone] [facility],non-owned Affiliates and Associated Physician Practices is amultiple site organization consisting of ambulatory clinics and hospital sitesin [place], [place] and [place]. This disclosure is being madepursuant to the Care Everywhere program and may not contain all information available regarding this patient. Last updated [employer] [facility] Allergies No known active allergies Medications * Be aware that medications may not be up to date on this document. Alwaysverify current medications with the patient. MIRENA, 52 MG, 20 MCG/24HR IUDIndications: Encounter for insertion of Mirena IUD 04/20/2018 Active nabumetone (RELAFEN) 750 MG tablet TAKE ONE TABLET BY MOUTH TWICE A DAY NEEDED FOR PAIN WITH FOOD 60 tablet 1 05/11/2020 Active tiZANidine (ZANAFLEX) 2 MG tablet TAKE 1 TO 2 TABLETS BY MOUTH ONCE A DAY AT BEDTIME NEEDED FOR MUSCLE PAIN AND SPASMS 40 tablet 2 09/20/2020 Active Active Problems Problem Noted Date Diagnosed Date Numbness and tingling in right hand 06/07/2018 Pain in joint, multiple sites 06/07/2018 Immunizations Immunization Administration Dates Next Due TDAP (7yrs+) 06/07/2018,10/17/2015 Family History Medical History Relation Name Comments Bipolar Disorder Brother Hypertension Father Cancer - Other Maternal Grandfather Cancer - Other Maternal Grandmother Hypertension Mother Cancer - Other Paternal Grandfather Cancer - Other Paternal Grandmother Relation Name Status Comments Brother Father Maternal Grandfather Maternal Grandmother Mother Paternal Grandfather Paternal Grandmother Social History Tobacco Use Types Packs/Day Years Used Date Smoking Tobacco: Former Smokeless Tobacco: Never Alcohol Use Standard Drinks/Week Comments Yes 0 (1 standard drink = 0.6 oz pur e alcohol) Comments No Sex and Gender Information Value Date Recorded Sex Assigned at Not on file Legal Sex Female 5:33 PM CDT Gender Identity Not on file Sexual Orientation Not on file Last Filed Vital Signs Vital Sign Reading Time Taken Comments Blood Pressure 120/82 05/04/2019 10:35 AM FRUIT GRADER Pulse 66 05/04/2019 10:35 AM FRUIT GRADER Temperature 37 C (98.6 F) 06/07/2018 10:30 AM CDT Respiratory Rate 18 03/20/2016 12:02 PM FRUIT GRADER Oxygen Saturation 99% 05/04/2019 10:35 AM FRUIT GRADER Inhaled Oxygen Concentration - - Weight 85.3 kg (188 lb) 05/04/2019 10:35 AM FRUIT GRADER Height 159.4 cm (5' 2.76) 05/04/2019 10:[address] Body Mass Index 33.56 05/04/2019 10:35 AM FRUIT GRADER Plan of Treatment Health Maintenance Due Date Last Done Comments HIV SCREENING 08/29/2003 HEPATITIS C SCREENING 08/24/2006 HEPATITIS B VACCINE (1 of 3 - 19+ 3-dose series) 08/29/2007 HPV VACCINE (1 - 3-dose SCDM series) 08/29/2015 PAP SMEAR 06/02/2019 06/01/2018, 05/01/2017 DEPRESSION SCREENING 03/23/2024 COVID-19 VACCINE (1 - 2024-2 6 season) 2024 INFLUENZA VACCINE (#1) 2024 DTAP/TDAP/TD VACCINES (3 - T d or Tdap) 06/07/2028 06/07/2018, 10/17/2015 ZOSTER VACCINE (1 of 2) 2038 HIB VACCINE Aged Out No longer eligi ble based on patient's age to complete this topic MENINGOCOCCAL (Group B) VACCINE SHARED DECISION-MAKING Aged Out No longer eligible based on patient's age to complete this topic MENINGOCOCCAL GROUPS A/C/Y/W VACCINE Aged Out No longer eligible b ased on patient's age to complete this topic PNEUMOCOCCAL VACCINE Aged Out No long er eligible based on patient's age to complete this topic Procedures Procedure Name Priority Date/Time Associated Diagnosis Comments PAP IG LB CT+GC RFLX HPV HR ASCU Routine 06/01/2018 11:02 AM CDT Well woman exam with routine gynecological exam from Last 3 Months or Most Recently Relevant to Health Maintenance Results * PAP IG LB CT+GC RFLX HPV HR ASCU (06/01/2018 11:02 AM CDT) Diagnosis [facility] INSURANCE BILL Comment:NEGATIVE FOR INTRAEP ITHELIAL LESION OR MALIGNANCY. Specimen Adequacy [facility] INSURANCE BILL Comment: Satisfactory for evaluation. Endocervical and/or squamous metaplastic cells (endocervical component) are present. Clinician Provided ICD10 [facility] INSURANCE BILL Comment:Z01.419 Performed by [facility] INSURANCE BILL Comment:Eloise Cuevas, Process Safety Management Engineer (ASCP) Comment . [facility] INSURANCE BILL Note [facility] INSURANCE BILL Comment: The Pap smear is a screening test designed to aid in the detection of premalignant and malignant conditions of the uterine cervix. It is not a diagnostic procedure and should not be used as the sole means of detecting cervical cancer. Both false-positive and false-negative reports do occur. . IGLBP CPT Code Automation [facility] INSURANCE BILL Comment: This liquid based ThinPrep(R) pap test was screened with the use of an image guided system. Note [facility] INSURANCE BILL Comment: The HPV DNA reflex criteria were not met with this specimen result therefore, no HPV testing was performed. . Chlamydia trachomatis LEWIS Negative Negative [facility] INSURANCE BILL GC DNA Probe Negative Negative [facility] INSURANCE BILL PART OF UTERINE CERVIX / Unknown 06/01/2018 11:02 AM CDT 06/01/2018 Narrative [facility] INSURANCE BILL - 06/03/2018 10:15 AM CDT Source.............Cervix;Endocervix;Vagina LMP / Prev Treat...APL=[id number];None Other..............IUD No. of containers..01 ThinPrep Vial Resulting Agency Comment [facility] [address] [place] [phone] us Sincere Murillo MD LAB - PATHOLOGY/CYTOLOGY ORDERAB LES Final Result [facility] INSURANCE BILL [address] [place] [address] from Last 3 Months or Most Recently Relevant to Health Maintenance Insurance [facility] MOTR * Guarantor: AMARI BEAZ Account Type Relation to Patient Date of Phone Billing Address Personal/Family Spouse Care Teams Rounding Machine Operator Relationship Specialty Start Date End Date Candi Sy MD [address] [place] [id number] PCP - General 04/08/22
== END 2025-03-09 04:45 | disposition home or self-care (01) ==
LOC: ANHED 04:22
PROVIDERS: Emergency Provider Student in an Organized Health Care Education/Training Program; PCP Nurse Practitioner Family
DX: R22.42 Localized swelling, mass and lump, left lower limb (principal); Z87.891 Personal history of nicotine dependence; Z90.710 Acquired absence of both cervix and uterus
CPT/HCPCS: 99281

== ENCOUNTER 2025-03-09 07:12 | Outpatient (CLI) | payer BC, SELFPAY ==
--- NOTE | ~2025-03-09 | US_ITS ---
EXAMINATION: US venous doppler [facility] DATE: 03/09/2025 07:44 INDICATION: Swelling TECHNIQUE: Grayscale ultrasound images without and with compression and Doppler ultrasound images of the left lower extremity veins were obtained. COMPARISON: None. FINDINGS: The visualized portions of left common femoral vein, profunda (deep) femoral vein, femoral vein, popliteal vein, peroneal veins, posterior tibial veins, and greater saphenous vein outflow are patent. IMPRESSION: 1. No deep venous thrombosis. Reviewed, dictated and finalized at location A. ER USED [facility]
--- OUTSIDE RECORDS SUMMARY | 2025-03-09 07:18 | XMS_ITS | Data Portability ---
Author Organization [place] [facility],, Yocasta mccabe Address [address] [place] [address] Assessment No assessment recorded. Plan of Treatment Reminders Order Date Submit Date Provider Last Modified By Organization Details Last Modified Time Details Appointments ALLERGY INJECTION 2024 03:00P M Nurse Schedule Not available Not available Not available Lab None recorded. Referral None recorded. Procedures allergy injection (PROC) 2024 025 [email or web address], [address], [place], [address], 03/03/2025 16:44:10 allergy injection (PROC) 2024 025 [facility], [address], [place], [address], 06/15/2024 18:03:53 allergy injection (PROC) 2024 025 [facility], [address], [place], [address], 06/07/2024 16:36:18 allergy injection (PROC) 2024 025 [email or web address] [facility], [address], [place], [address], 06/01/2024 16:12:10 allergy injection (PROC) 2024 025 [email or web address] [facility], [address], [place], [address], 05/23/2024 14:23:58 Surgeries None recorded. Imaging None recorded. Medication Orders None recorded. Patient TargetsNo targets recorded. Patient InstructionsNo instructions recorded. Reason for Referral None Reported. Results Created Date Observation Date Name Description Value Unit Range Abnormal Flag Note LastModifiedBy Organization Detail LastModifiedTime 05/05/1905/05/2024 aller gy test, skin Mites positi ve Not Available [facility] [address], [place], [address], 05/05/2024 12:09:39 05/05/1905/05/2024 aller gy test, skin Mold positi ve Not Available [facility] [address], [place], [address], 05/05/2024 12:09:39 05/05/1905/05/2024 aller gy test, skin Cat positi ve Not Available [facility] [address], [place], [address], 05/05/2024 12:09:39 05/05/1905/05/2024 aller gy test, skin Dog positi ve Not Available [facility] [address] [facility] [address], [place], [address], 05/05/2024 12:09:39 05/05/1905/05/2024 aller gy test, skin Trees positi ve Not Available [facility] [address] [facility] [address], [place], [address], 05/05/2024 12:09:39 05/05/1905/05/2024 aller gy test, skin Grass positi ve Not Available [facility] [address] [facility] [address], [place], [address], 05/05/2024 12:09:39 Result Notes None recorded. Problems Name Problem SNOMED Code Status Onset Date Resolution Date Notes Provider Name and Address Organization Details Recorded Time Allergic rhinitis caused by animal dander [id number] Active 025 Yocasta Mccabe NP-C [address], [place], [address] , [place] [facility], 5 17:17:15 Problem Notes None recorded. Medical Equipment None Reported. Allergies Allergen ID Allergen Name Allergen Category Reaction Reaction Severity Criticality Documentation Date Start Date Code Code System Note Provider Name and Address Organization Details Recorded Time 00266 Canis lupus familiari s extract environme nt hives Not available high 02/27/20252024 94039 4 RxNorm Not Available ranjana - External [...] ICD10 Code Diagnosis IMO Codes Diagnosis Note [id number] González mota MD OFFICE [address] [place] [address] 8 05/05/2024 11:19:13 05/05/2024 14:46:03 Allergic rhinitis 48985106 J30.9 The patient's symptoms are compatible with allergic rhinitis. Skin testing confirmed the allergic nature of this condition. The three fundamenta l therapeuti c strategies were discussed with the patient. These include allergen avoidance, pharmacolo gic interventi on with intranasal corticoste roids, antihistam estuardo, and potentiall y intranasal antihistam estuardo. Finally allergy immunother apy was discussed. The patient was started on allergy immunother apy . [id number] González mota MD OFFICE [address] [place] [phone] 8 05/10/2024 10:00:45 05/10/2024 12:01:27 Allergic rhinitis caused by animal dander [id number] J30.81 FILLED SERUM 3 VIALS 3 INJ WITH ANIMAL [id number] Mayra Toledo MD OFFICE [address] [place] [address] 8 05/18/2024 16:57:25 05/18/2024 17:06:10 Allergic rhinitis caused by animal dander 218826597 J30.81 Patient received allergy immunother apy (3 INJECTIONS ) per patient's AIT regimen. No complicati ons noted. Patient to return per AIT treatment regimen schedule.3 INJ [id number] Mayra Toledo MD OFFICE [address] [place] [address] 8 05/23/2024 11:38:15 05/23/2024 14:36:25 Allergic rhinitis caused by animal dander 924636891 J30.81 3 INJ [id number] Mayra Toledo MD OFFICE [address] [place] [phone] 8 06/01/2024 15:39:34 06/01/2024 16:33:18 Allergic rhinitis caused by animal dander 335654309 J30.81 3 INJ [id number] González mota MD OFFICE [address] [place] [address] 62358-324 8 06/07/2024 15:59:09 06/07/2024 16:35:30 Allergic rhinitis caused by animal dander [id number] J30.81 Patient received allergy immunother apy (3 INJECTIONS ) per patient's AIT regimen. No complicati ons noted. Patient to return per AIT treatment regimen schedule. 3 INJ [id number] González mota MD OFFICE [address] [place] [phone] 8 06/15/2024 17:13:01 06/15/2024 18:26:34 Allergic rhinitis caused by animal dander [id number] J30.81 Patient received allergy immunother apy (3 INJECTIONS ) per patient's AIT regimen. No complicati ons noted. Patient to return per AIT treatment regimen schedule. 3 INJ [id number] González mota MD OFFICE [address] [place] [address]8910-851 8 03/03/2025 16:19:07 03/03/2025 16:58:35 Allergic rhinitis caused by animal dander [id number] J30.81 [id number] Patient received allergy immunother apy (3 INJECTIONS ) per patient's AIT regimen. No complicati ons noted. Patient to return per AIT treatment regimen schedule. 3 INJ Health Concerns Section Related Observation LastModified by Organization Detai ls LastModified Time None Recorded Concern Status LastModified by Organization Details LastModified Time None Recorded Advance Directives Directive None Recorded Payers Insurance Date Sequence Insurance Name Policy Number Policy Gonzalez Covered Member ID Gonzalez Member ID Guarantor Name 03/07/2025 1 [employer] [id number] Sherri Baez [id number] Sherri Baez OBGyn Episode No OBEpisode recorded.
--- OUTSIDE RECORDS SUMMARY | 2025-03-09 07:21 | XMS_ITS | Clinical Summary ---
Author Organization [facility] [address] [facility] Address [address] [place] [address] Care Team Providers Care Rabbit Dresser Name Role Phone Mitra Leonica CARGO AGENT Primary Care Provider [phone] Allergies Active Allergy Reactions Criticality Noted Date [...] Department Care Team Description 01/24/2025 10:44 AM LABORER SYRUP MACHINE - 01/24/2025 11:59 PM LABORER SYRUP MACHINE Hospital Encounter [address] [address] Polyarthralgia Discharge Disposition: Discharge to home or self care 01/24/2025 10:20 AM LABORER SYRUP MACHINE - 01/24/2025 11:59 PM LABORER SYRUP MACHINE Hospital Encounter [facility] [address] [place] [address] Bharath Thomson MD PhD Arthralgia, unspecified joint; Polyarthralgia Discharge Disposition: Discharge to home or self care 01/24/2025 10:15 AM LABORER SYRUP MACHINE Lab [facility] Medicine Endocrinology Metabolism and Lipid [address] [facility] [address] [place] [address] Arthralgia, unspecified joint 01/24/2025 9:00 AM LABORER SYRUP MACHINE Office Visit [facility] Medicine Rheumatology [address] [facility] [address] [place] [address] Bharath Thomson MD PhD Polyarthralgia (Primary Dx); [...] Comments Blood Pressure 103/75 01/24/2025 9:13 AM LABORER SYRUP MACHINE Pulse 98 01/24/2025 9:13 AM LABORER SYRUP MACHINE Temperature 36.7 C (98.1 F) 01/24/2025 9:13 AM LABORER SYRUP MACHINE Respiratory Rate - - Oxygen Saturation - - Inhaled Oxygen Concentration - - Weight 83.5 kg (184 lb) 01/24/2025 9:13 AM LABORER SYRUP MACHINE Height 162.6 cm (5' 4) 01/24/2025 9:13 AM LABORER SYRUP MACHINE Body Mass Index 31.58 01/24/2025 9:13 AM LABORER SYRUP MACHINE Plan of Treatment Health Maintenance Due Date [...] Read Routine (OP Routine) 01/24/2025 10:49 AM LABORER SYRUP MACHINE Polyarthralgia XR KNEE LEFT 3 VIEWS Schedule Routine, Read Routine (OP Routine) 01/24/2025 10:49 AM LABORER SYRUP MACHINE Polyarthralgia XR WRIST LEFT 3 OR MORE VIEWS Schedule Routine, Read Routine (OP Routine) 01/24/2025 10:49 AM LABORER SYRUP MACHINE Polyarthralgia XR WRIST RIGHT 3 OR MORE VIEWS Schedule Routine, Read Routine (OP Routine) 01/24/2025 10:49 AM LABORER SYRUP MACHINE Polyarthralgia XR HAND LEFT 3 OR MORE VIEWS Schedule Routine, Read Routine (OP Routine) 01/24/2025 10:49 AM LABORER SYRUP MACHINE Polyarthralgia XR HAND RIGHT 3 OR MORE VIEWS Schedule Routine, Read Routine (OP Routine) 01/24/2025 10:49 AM LABORER SYRUP MACHINE Polyarthralgia XR ANKLE RIGHT 3 OR MORE VIEWS Schedule Routine, Read Routine (OP Routine) 01/24/2025 10:49 AM LABORER SYRUP MACHINE Arthralgia, unspecified joint PAIGE QUALITATIVE WITH REFLEX TO PAIGE QUANTITATIVE Routine 01/24/2025 10:14 AM LABORER SYRUP MACHINE Polyarthralgia C4 COMPLEMENT Routine 01/24/2025 10:14 AM LABORER SYRUP MACHINE Polyarthralgia C3 COMPLEMENT Routine 01/24/2025 10:14 AM LABORER SYRUP MACHINE Polyarthralgia GLADYS ANTIBODY EVALUATION WITH REFLEX Routine 01/24/2025 10:14 AM LABORER SYRUP MACHINE Polyarthralgia ANTI-DOUBLE STRANDED DNA ANTIBODIES Routine 01/24/2025 10:14 AM LABORER SYRUP MACHINE Polyarthralgia ERYTHROCYTE SEDIMENTATION RATE Routine 01/24/2025 10:14 AM LABORER SYRUP MACHINE Arthralgia, unspecified joint CRP, HIGH SENSITIVITY Routine 01/24/2025 10:14 AM LABORER SYRUP MACHINE Arthralgia, unspecified joint from Last 3 Months Results * XR Ankle Right 3 or More Views (01/24/2025 10:49 AM LABORER SYRUP MACHINE) Anatomical Region Laterality Modality Lower Extremities, Ankle Right Compute d Radiography 01/24/2025 12:1 1 PM LABORER SYRUP MACHINE Impressions 01/24/2025 12:11 PM LABORER SYRUP MACHINE No radiographic evidence of inflammatory arthritis. Electronically signed by: Madhu Winchester M.D. Narrative 01/24/2025 12:11 PM LABORER SYRUP MACHINE EXAMINATION: XR ANKLE RIGHT 3 OR MORE [...] 3 or More Views (01/24/2025 10:49 AM LABORER SYRUP MACHINE) Anatomical Region Laterality Modality Lower Extremities, Ankle Left Compute d Radiography 01/24/2025 12:1 1 PM LABORER SYRUP MACHINE Impressions 01/24/2025 12:11 PM LABORER SYRUP MACHINE No radiographic evidence of inflammatory arthritis. Electronically signed by: Madhu Winchester M.D. Narrative 01/24/2025 12:11 PM LABORER SYRUP MACHINE EXAMINATION: XR ANKLE RIGHT 3 OR MORE [...] Knee Left 3 Views (01/24/2025 10:49 AM LABORER SYRUP MACHINE) Anatomical Region Laterality Modality Lower Extremities, Knee Left Computed Radiography 01/24/2025 12:1 1 PM LABORER SYRUP MACHINE Impressions 01/24/2025 12:11 PM LABORER SYRUP MACHINE No radiographic evidence of inflammatory arthritis. Electronically signed by: Madhu Winchester M.D. Narrative 01/24/2025 12:11 PM LABORER SYRUP MACHINE EXAMINATION: XR ANKLE RIGHT 3 OR MORE [...] 3 or More Views (01/24/2025 10:49 AM LABORER SYRUP MACHINE) Anatomical Region Laterality Modality Upper Extremities, Hand Right Computed Radiography 01/24/2025 12:1 1 PM LABORER SYRUP MACHINE Impressions 01/24/2025 12:11 PM LABORER SYRUP MACHINE No radiographic evidence of inflammatory arthritis. Electronically signed by: Madhu Winchester M.D. Narrative 01/24/2025 12:11 PM LABORER SYRUP MACHINE EXAMINATION: XR ANKLE RIGHT 3 OR MORE [...] fracture. Joint spaces are normal. Procedure Note Mdahu Winchester MD PhD - 01/24/2025 EXAMINATION: XR [...] 3 or More Views (01/24/2025 10:49 AM LABORER SYRUP MACHINE) Anatomical Region Laterality Modality Upper Extremities, Hand Left Computed Radiography 01/24/2025 12:1 1 PM LABORER SYRUP MACHINE Impressions 01/24/2025 12:11 PM LABORER SYRUP MACHINE No radiographic evidence of inflammatory arthritis. Electronically signed by: Madhu Winchester M.D. Narrative 01/24/2025 12:11 PM LABORER SYRUP MACHINE EXAMINATION: XR ANKLE RIGHT 3 OR MORE [...] 3 or More Views (01/24/2025 10:49 AM LABORER SYRUP MACHINE) Anatomical Region Laterality Modality Upper Extremities, Wrist Right Compute d Radiography 01/24/2025 12:1 1 PM LABORER SYRUP MACHINE Impressions 01/24/2025 12:11 PM LABORER SYRUP MACHINE No radiographic evidence of inflammatory arthritis. Electronically signed by: Madhu Winchester M.D. Narrative 01/24/2025 12:11 PM LABORER SYRUP MACHINE EXAMINATION: XR ANKLE RIGHT 3 OR MORE [...] 3 or More Views (01/24/2025 10:49 AM LABORER SYRUP MACHINE) Anatomical Region Laterality Modality Upper Extremities, Wrist Left Compute d Radiography 01/24/2025 12:1 1 PM LABORER SYRUP MACHINE Impressions 01/24/2025 12:11 PM LABORER SYRUP MACHINE No radiographic evidence of inflammatory arthritis. Electronically signed by: Madhu Winchester M.D. Narrative 01/24/2025 12:11 PM LABORER SYRUP MACHINE EXAMINATION: XR ANKLE RIGHT 3 OR MORE [...] w/rflx to PAIGE qn (01/24/2025 10:14 AM LABORER SYRUP MACHINE) PAIGE Negative Comment: Interpretive Data Normal range [...] on 2019. Blood 01/24/2025 10:1 4 AM LABORER SYRUP MACHINE 01/24/2025 11:41 AM LABORER SYRUP MACHINE us Bharath Thomson MD PhD LAB BLOOD ORDERABLE S Final Result Performing Organization Address [facility] de Phone Number [facility] [employer] [place] [address] * Anti-double stranded DNA abs (01/24/2025 10:14 AM LABORER SYRUP MACHINE) dsDNA Ab 1.0 <=4.0 IUnits/mL Comment: Interpretive Data Negative: < or = 4 IUnits/mL Indeterminate: 5 - 9 IUnits/mL Positive: > or = 10 IUnits/mL Current interpretive data was last revised on 2016. Blood 01/24/2025 10:1 4 AM LABORER SYRUP MACHINE 01/24/2025 11:41 AM LABORER SYRUP MACHINE us Bharath Thomson MD PhD LAB BLOOD ORDERABLE S Final Result Performing Organization Address [facility] de Phone Number [facility] [employer] [place] [address] * C4 complement (01/24/2025 10:14 AM LABORER SYRUP MACHINE) Complement C4 26.3 10.0 - 40.0 mg/dL Blood 01/24/2025 10:1 4 AM LABORER SYRUP MACHINE 01/24/2025 11:41 AM LABORER SYRUP MACHINE Bharath Thomson MD PhD LAB BLOOD ORDERABLE S Final Result Performing Organization Address [facility]/State/ZIP Co de Phone Number DEBBIE [facility] Department [place] [address] * GLADYS ab eval w/reflex (01/24/2025 10:14 AM LABORER SYRUP MACHINE) GLADYS ab Negative Negative Comment: Interpretive Data Positive Screens will be reflexed to specific testing for Antibodies against the following antigens: Pam-1 Ab, SAP PPM CONSULTANT Ab, Scl-70 Ab, Sierra Ab, SS-A/Ro Ab, and SS- B/La Ab. Further testing for dsDNA, Centromere, or Ribosomal P antibodies is suggested in patient with a positive screen and negative specific antibodies. Current interpretive data was last revised on 2022. Blood 01/24/2025 10:1 4 AM LABORER SYRUP MACHINE 01/24/2025 11:41 AM LABORER SYRUP MACHINE us Bharath Thomson MD PhD LAB BLOOD ORDERABLE S Final Result Performing Organization Address [facility] Co de Phone Number DEBBIE [facility] Department [place] [address] * Erythrocyte sedimentation rate (01/24/2025 10:14 AM LABORER SYRUP MACHINE) Pathologist [facility] Erythrocyte Sedimentation Rate 19 <20 mm/hr [facility] Blood 01/24/2025 10:1 4 AM LABORER SYRUP MACHINE 01/24/2025 10:55 AM LABORER SYRUP MACHINE Narrative [facility] - 01/24/2025 11:40 AM LABORER SYRUP MACHINE 8 us Bharath Thomson MD PhD LAB BLOOD ORDERABLE S Final Result [facility] * C3 complement (01/24/2025 10:14 AM LABORER SYRUP MACHINE) Complement C3 139.0 90.0 - 180.0 mg/dL Blood 01/24/2025 10:1 4 AM LABORER SYRUP MACHINE 01/24/2025 11:41 AM LABORER SYRUP MACHINE us Bharath Thomson MD PhD LAB BLOOD ORDERABLE S Final Result [facility]E [facility] Department [place] [address] * CRP (cardiac risk) (01/24/2025 10:14 AM LABORER SYRUP MACHINE) CRP, High Sensitivity 1.11 0.00 - 3.00 mg/L [facility] Comment: hsCRP Cardiovascular Risk Assessment Less than 1.0 mg/L = Low Risk 1.0 - 3.0 mg/L = Average Risk More than 3.0 mg/L = High Risk Blood 01/24/2025 10:1 4 AM LABORER SYRUP MACHINE 01/24/2025 10:55 AM LABORER SYRUP MACHINE Narrative [facility] - 01/24/2025 11:40 AM LABORER SYRUP MACHINE 8 us Bharath Thomson MD PhD LAB BLOOD ORDERABLE S Final Result [facility] from Last 3 Months Insurance [employer] OOS [employer] Care Teams Rabbit Dresser Relationship Specialty Start Date End Date Sherri Leon NP [address] [address] PCP - General Family Practice 11/04/24
--- OUTSIDE RECORDS SUMMARY | 2025-03-09 07:22 | XMS_ITS | Encounter Summary ---
Author Organization [facility] Address [address] [place] [address] Care Team Providers Care Senior Clinical Data Analyst Name Role Phone Unavailable Primary Care Provider Unavailabl e Prior Encounters Date Type Department Care Team Description 04/11/2019 Converted CPS Chart Documents [facility] [address] [place] [phone] <No scans attached> 04/11/2019 Converted 13x Documents [facility] [address] [place] [phone] <No scans attached> Plan of Treatment Not on file Procedures Procedure Name Priority Date/Time Associated Diagnosis Comments MISSED APPOINTMENT Routine 09/30/2016 2: 00 AM CDT 30 CORE BUILDUP, INCLUDING ANY PINS WHEN REQUIRED Routine 03/25/2016 2:00 AM SUPERVISOR PROPERTIES 14 AMALGAM 3 SURFACE Routine 017 2:00 AM SUPERVISOR PROPERTIES 15 CERECFIRED CROWNPOST Routine 03/25/19 17 2:00 AM SUPERVISOR PROPERTIES 30 ENDODONTIC THERAPY, MOLAR TOOTH (EXCLUDING FINAL RELIGION) Routine 03/25/2016 2:00 AM SUPERVISOR PROPERTIES ORAL HYGIENE INSTRUCTIONS Routine 2016 2:00 AM SUPERVISOR PROPERTIES TOPICAL APPLICATION OF FLUORIDE VARNISH Routine 03/25/2016 2:00 AM SUPERVISOR PROPERTIES PROPHYLAXIS - ADULT Routine 03/25/2016 2 :00 AM SUPERVISOR PROPERTIES COMPREHENSIVE ORAL EVALUATION - NEW OR ESTABLISHED PATIENT Routine 03/25/2016 2:00 AM SUPERVISOR PROPERTIES PANORAMIC RADIOGRAPHIC IMAGE Routine 03/25/2016 2:00 AM SUPERVISOR PROPERTIES INTRAORAL - COMPREHENSIVE SERIES OF RADIOGRAPHIC IMAGES Routine 03/25/2016 2:00 AM SUPERVISOR PROPERTIES INTRAORAL PHOTO Routine 03/25/2016 2:00 AM SUPERVISOR PROPERTIES INTRAORAL PHOTO Routine 03/25/2016 2:00 AM SUPERVISOR PROPERTIES INTRAORAL PHOTO Routine 03/25/2016 2:00 AM SUPERVISOR PROPERTIES INTRAORAL PHOTO Routine 03/25/2016 2:00 AM SUPERVISOR PROPERTIES 12 DO COMPOSITE FILLING Routine 03/25/19 17 2:00 AM SUPERVISOR PROPERTIES 5 DO COMPOSITE FILLING Routine 7 2:00 AM SUPERVISOR PROPERTIES 19 O COMPOSITE FILLING Routine 7 2:00 AM SUPERVISOR PROPERTIES 14 M COMPOSITE FILLING Routine 7 2:00 AM SUPERVISOR PROPERTIES 3 O COMPOSITE FILLING Routine 03/25/2016 2:00 AM SUPERVISOR PROPERTIES Visit Diagnoses Not on file
--- OUTSIDE RECORDS SUMMARY | 2025-03-09 07:22 | XMS_ITS | Clinical Summary ---
Author Organization [facility] Address [address] [place] [address] Care Team Providers Care Sales And Service Consultant Name Role Phone Unavailable Primary Care Provider [...]
== END 2025-03-09 07:13 | disposition home or self-care (01) ==
PROVIDERS: PCP Nurse Practitioner Family; Visit Provider Student in an Organized Health Care Education/Training Program
DX: M79.89 Other specified soft tissue disorders (principal)
CPT/HCPCS: 93971